=== PATIENT | female | born 1935 | race Caucasian/White ===

== ENCOUNTER 2017-04-17 03:48 | Inpatient (IN) | payer MEDICARE ==
[~2017-04-17] VITALS: Ht 154.9 cm; Wt 55.2 kg
[~2017-04-17 03:48] MED LIST: ALPR0.25 PO; DOCU1CAP39 PO; FURO20TA PO; LEVO.1 PO; LISI-363 PO; MISC-105; MVI PO; POTA-267 PO; PROT40TA PO; SYMB80AE INH; VERA240CR PO; WARF4 PO; Z.0.COMMODE-3:1; Z.0.WALKERFRONT; [UNRECOGNIZED DRUG - CODE]; [UNRECOGNIZED DRUG - CODE]; [UNRECOGNIZED DRUG - OTHER]
[2017-04-17 03:50] VITALS: BP 188/89; PULSE 109; RESP 20; TEMP 98.2; O2SAT 88
[2017-04-17] MEDS ORDERED: LANS30CA PO (03:56)
[2017-04-17] MEDS ORDERED: XANA1TAB2 PO (03:56)
[2017-04-17] MEDS ORDERED: VERA1TAB17 PO (03:56)
[2017-04-17] MEDS ORDERED: FURO20TA PO (03:56)
[2017-04-17] MEDS ORDERED: K-TA10TA PO (03:56)
[2017-04-17] MEDS ORDERED: ASPI-516 CHEW (03:56)
[2017-04-17] MEDS ORDERED: LISI-515 PO (03:56)
[2017-04-17] MEDS ORDERED: RANI150T PO (03:56)
[2017-04-17] MEDS ORDERED: ACETAMINOPHEN 325 MG TAB PO ONE (04:00)
--- NOTE | 2017-04-17 04:01 | PD ---
HPI Chief Complaint: Fall Time Seen by Provider: 03:52 Travel History International Travel<30 days: No Contact w/Intl Traveler<30days: No Traveled to known affect area: No History of Present Illness HPI The patient is a 82-year-old female who presents emergency department for left hip and pelvic pain after falling. The patient states she got out of bed earlier tonight, was walking on a carpeted surface when she lost her balance and fell on her left hip. The patient plays left hip pain that radiates into the left pelvis. The patient was able to ambulate into bed, however, was unable to ambulate after she got into bed. The patient states she difficulty getting to the bathroom and had to call EMS. She was unable to bear weight to the bathroom, but was able to get there with EMS help. She does have a history of previous right hip replacement, denies any previous injuries to the left hip. The pain is worse with movement and weightbearing activity. She denies any head injury, neck injury, chest pain, shortness breath, nausea, vomiting, or abdominal pain. Symptoms are moderate, exacerbated after falling, and slightly alleviated at rest. PFSH Past Medical History Arthritis: No Asthma: No Autoimmune Disease: No Anxiety: Yes Depression: Yes Heart Rhythm Problems: Yes Cancer: No Cardiovascular Problems: Yes (CHF) High Cholesterol: Yes Chemotherapy: No Chest Pain: No Congestive Heart Failure: Yes (Diastolic CHF) COPD: Yes Cerebrovascular Accident: No Diabetes: No Endocrine: Yes Gastrointestinal Disorders: Yes GERD: Yes Glaucoma: Yes (EARLY MAC. DEGEN) Genitourinary: No Headaches: No Hepatitis: No Hiatal Hernia: Yes Heparin Induced Thrombocytopen: No Hypertension: Yes Immune Disorder: No Implanted Vascular Access Dvce: Yes Kidney Stones: No Medical other: Yes (DVT RIGHT LEG, ?PE AT THAT TIME) Musculoskeletal: Yes Neurologic: Yes Psychiatric: Yes Reproductive: No Respiratory: Yes (Pulmonary hypertension) Migraines: No Radiation Therapy: No Renal Failure: No Seizures: No Sickle Cell Disease: No Sleep Apnea: No Thyroid Disease: Yes (Hypothyroidism) Ulcer: No Past Surgical History Abdominal Surgery: No AICD: No Arteriovenous Shunt: No Body Medical Devices: SCREWS RIGHT HIP Cardiac Surgery: No Ear Surgery: No Endocrine Surgery: No Eye Surgery: Yes (Cataract removal) Genitourinary Surgery: Yes (Surgery of the urethra) Gynecologic Surgery: Yes (BTL and oopherectomy) Hysterectomy: Yes Insulin Pump: No Joint Replacement: Yes (Right JESSE) Neurologic Surgery: No Oral Surgery: Yes (Tonsillectomy) Pacemaker: No Thoracic Surgery: No Other Surgery: Yes Social History Alcohol Use: Yes (RARELY) Tobacco Use: Yes (1/2 PPD) Substance Use: No Allergies-Medications (Allergen,Severity, Reaction): Coded Allergies: amoxicillin (Unverified Allergy, Severe, TONGUE SWELLING, 04/17/17) clavulanic acid (Unverified Allergy, Severe, TONGUE SWELLING, 04/17/17) codeine (Unverified Allergy, Severe, NAUSEA, 04/17/17) diatrizoate meglumine (Unverified Allergy, Severe, ITCH, NAUSEA, 04/17/17) gadobenic acid (Unverified Allergy, Severe, ITCH, NAUSEA, 04/17/17) gadodiamide (Unverified Allergy, Severe, ITCH, NAUSEA, 04/17/17) gadoteridol (Unverified Allergy, Severe, ITCH, NAUSEA, 04/17/17) iodixanol (Unverified Allergy, Severe, ITCH, NAUSEA, 04/17/17) iohexol (Unverified Allergy, Severe, ITCH, NAUSEA, 04/17/17) phenobarbital (Unverified Allergy, Severe, RASH, 04/17/17) fentanyl (Unverified Adverse Reaction, Unknown, 04/17/17) FENTANYL PATCH-PT HALLUCINATED, "OUT OF IT", UNCONSIOUS Reported Meds & Prescriptions Reported Meds & Active Scripts Active Reported Xanax (Alprazolam) 1 Mg Tab 1 Mg PO Q8H PRN Ranitidine (Ranitidine HCl) 150 Mg Tab 150 Mg PO DAILY Verapamil ER 24 HR (Verapamil HCl) 240 Mg Tab 240 Mg PO HS Lansoprazole 30 Mg Capdr 30 Mg PO DAILY Furosemide 20 Mg Tab 20 Mg PO DAILY Aspirin 81 Mg Chew 81 Mg CHEW DAILY K-Tab (Potassium Chloride) 10 Meq Tab 10 Meq PO DAILY Lisinopril 20 Mg Tab 20 Mg PO DAILY Review of Systems Except as stated in HPI: all other systems reviewed are Neg General / Constitutional: No: Fever HENT: No: Headaches, Lightheadedness, Neck Pain Cardiovascular: No: Chest Pain or Discomfort Respiratory: No: Shortness of Breath Gastrointestinal: No: Nausea, Vomiting, Abdominal Pain Musculoskeletal: Positive: Limited ROM, Pain Neurologic: No: Dizziness Physical Exam Narrative GENERAL: Awake, alert, pleasant 82 year-old female appears her stated age and is in no acute respiratory distress. SKIN: Focused skin assessment warm/dry. Superficial ecchymosis noted a left upper extremity. HEAD: Atraumatic. Normocephalic. EYES: Pupils equal and round. No scleral icterus. No injection or drainage. ENT: No nasal bleeding or discharge. Mucous membranes pink and moist. NECK: Trachea midline. No JVD. No tenderness of the cervical vertebrae. CARDIOVASCULAR: Regular rate and rhythm. No murmur appreciated. RESPIRATORY: No accessory muscle use. Clear to auscultation. Breath sounds equal bilaterally. GASTROINTESTINAL: Abdomen soft, non-tender, nondistended. No rebound tenderness. Back: No tenderness over the thoracic or lumbar vertebrae. MUSCULOSKELETAL: No obvious leg length discrepancy. Patient has pain over the lateral left hip with flexion of the hip and knee. Mild tenderness upon palpation of the lateral left hip and left inguinal canal. Positive distal pulses. NEUROLOGICAL: Awake and alert. No obvious cranial nerve deficits. Motor grossly within normal limits. Normal speech. Nonfocal. Oriented 4. Follows commands without difficulty. PSYCHIATRIC: Appropriate mood and affect; insight and judgment normal. Data Data Last Documented VS Vital Signs Date Time Temp Pulse Resp B/P (MAP) Pulse Ox O2 Delivery O2 Flow Rate FiO2 04/17/17 04:43 92 Nasal Cannula 2.00 04/17/17 03:50 98.2 109 20 188/89 (122) Orders Orders Hip, Uni(Ap&Lat) W Ap Pelvis (04/17/17 ) Acetaminophen (Tylenol) (04/17/17 04:00) Electrocardiogram (04/17/17 04:39) Complete Blood Count With Diff (04/17/17 04:39) Comprehensive Metabolic Panel (04/17/17 04:39) Prothrombin Time / Inr (Pt) (04/17/17 04:39) Act Partial Throm Time (Ptt) (04/17/17 04:39) Urinalysis - C+S If Indicated (04/17/17 04:39) Type And Screen (04/17/17 04:39) Chest, Single Ap (04/17/17 04:39) Iv Access Insert/Monitor (04/17/17 04:39) Oximetry (04/17/17 04:39) Ecg Monitoring (04/17/17 04:39) Sodium Chloride 0.9% Flush (Ns Flush) (04/17/17 04:45) Urinary Catheter Insert/Apply (04/17/17 04:44) Consult Orthopedic (04/17/17 ) Admit Order (Ed Use Only) (04/17/17 05:27) Labs Laboratory Tests Test 04/17/17 04:45 White Blood Count 14.5 TH/MM3 Red Blood Count 4.49 MIL/MM3 Hemoglobin 12.1 GM/DL Hematocrit 37.0 % Mean Corpuscular Volume 82.5 FL Mean Corpuscular Hemoglobin 27.0 PG Mean Corpuscular Hemoglobin Concent 32.7 % Red Cell Distribution Width 15.1 % Platelet Count 502 TH/MM3 Mean Platelet Volume 6.5 FL Neutrophils (%) (Auto) 86.1 % Lymphocytes (%) (Auto) 6.2 % Monocytes (%) (Auto) 6.1 % Eosinophils (%) (Auto) 0.5 % Basophils (%) (Auto) 1.1 % Neutrophils # (Auto) 12.4 TH/MM3 Lymphocytes # (Auto) 0.9 TH/MM3 Monocytes # (Auto) 0.9 TH/MM3 Eosinophils # (Auto) 0.1 TH/MM3 Basophils # (Auto) 0.2 TH/MM3 CBC Comment DIFF FINAL Differential Comment Prothrombin Time 10.6 SEC Prothromb Time International Ratio 1.0 RATIO Activated Partial Thromboplast Time 29.1 SEC Urine Color YELLOW Urine Turbidity HAZY Urine pH 7.5 Urine Specific [place] 1.015 Urine Protein TRACE mg/dL Urine Glucose (UA) NEG mg/dL Urine Ketones 10 mg/dL Urine Occult Blood TRACE Urine Nitrite NEG Urine Bilirubin NEG Urine Urobilinogen LESS THAN 2.0 MG/DL Urine Leukocyte Esterase NEG Urine RBC 3 /hpf Urine WBC 1 /hpf Urine Bacteria RARE /hpf Urine Mucus FEW /lpf Microscopic Urinalysis Comment CULT NOT INDICATED Blood Urea Nitrogen 8 MG/DL Creatinine 0.59 MG/DL Random Glucose 106 MG/DL Total Protein 6.7 GM/DL Albumin 2.9 GM/DL Calcium Level 8.7 MG/DL Alkaline Phosphatase 92 U/L Aspartate Amino Transf (AST/SGOT) 10 U/L Alanine Aminotransferase (ALT/SGPT) 19 U/L Total Bilirubin 0.4 MG/DL Sodium Level 134 MEQ/L Potassium Level 3.8 MEQ/L Chloride Level 99 MEQ/L Carbon Dioxide Level 27.8 MEQ/L Anion Gap 7 MEQ/L Estimat Glomerular Filtration Rate 97 ML/MIN [facility] Medical Decision Making Medical Screen Exam Complete: Yes Emergency Medical Condition: Yes Medical Record Reviewed: Yes Interpretation(s) EKG reveals sinus tachycardia with a heart rate of 101. Q wave noted in lead 2 , 3, and aVF. Last Impressions Hip and Pelvis X-Ray 04/17/17 0000 Signed Impressions: Service Date/Time: Monday, April 17, 2017 04:18 - CONCLUSION: Subcapital femoral neck fracture. Ismael Romano MD Chest x-ray reveals questionable nodular density seen in the upper lungs bilaterally. This could be further evaluated with a CT examination of the chest. Mildly prominent interstitial markings especially in the upper lungs. Laboratory Tests Test 04/17/17 04:45 White Blood Count 14.5 TH/MM3 Red Blood Count 4.49 MIL/MM3 Hemoglobin 12.1 GM/DL Hematocrit 37.0 % Mean Corpuscular Volume 82.5 FL Mean Corpuscular Hemoglobin 27.0 PG Mean Corpuscular Hemoglobin Concent 32.7 % Red Cell Distribution Width 15.1 % Platelet Count 502 TH/MM3 Mean Platelet Volume 6.5 FL Neutrophils (%) (Auto) 86.1 % Lymphocytes (%) (Auto) 6.2 % Monocytes (%) (Auto) 6.1 % Eosinophils (%) (Auto) 0.5 % Basophils (%) (Auto) 1.1 % Neutrophils # (Auto) 12.4 TH/MM3 Lymphocytes # (Auto) 0.9 TH/MM3 Monocytes # (Auto) 0.9 TH/MM3 Eosinophils # (Auto) 0.1 TH/MM3 Basophils # (Auto) 0.2 TH/MM3 CBC Comment DIFF FINAL Differential Comment Prothrombin Time 10.6 SEC Prothromb Time International Ratio 1.0 RATIO Activated Partial Thromboplast Time 29.1 SEC Urine Color YELLOW Urine Turbidity HAZY Urine pH 7.5 Urine Specific [place] 1.015 Urine Protein TRACE mg/dL Urine Glucose (UA) NEG mg/dL Urine Ketones 10 mg/dL Urine Occult Blood TRACE Urine Nitrite NEG Urine Bilirubin NEG Urine Urobilinogen LESS THAN 2.0 MG/DL Urine Leukocyte Esterase NEG Urine RBC 3 /hpf Urine WBC 1 /hpf Urine Bacteria RARE /hpf Urine Mucus FEW /lpf Microscopic Urinalysis Comment CULT NOT INDICATED Blood Urea Nitrogen 8 MG/DL Creatinine 0.59 MG/DL Random Glucose 106 MG/DL Total Protein 6.7 GM/DL Albumin 2.9 GM/DL Calcium Level 8.7 MG/DL Alkaline Phosphatase 92 U/L Aspartate Amino Transf (AST/SGOT) 10 U/L Alanine Aminotransferase (ALT/SGPT) 19 U/L Total Bilirubin 0.4 MG/DL Sodium Level 134 MEQ/L Potassium Level 3.8 MEQ/L Chloride Level 99 MEQ/L Carbon Dioxide Level 27.8 MEQ/L Anion Gap 7 MEQ/L Estimat Glomerular Filtration Rate 97 ML/MIN Differential Diagnosis Differential diagnosis includes hip fracture, hip dislocation, hip contusion, pelvic fracture, sacral fracture, mechanical fall, hematoma. Narrative Course X-ray of the left hip and pelvis was obtained. The patient declined pain medication with narcotics, however, did state she would take a Tylenol. Therefore, patient was administered Tylenol 650 mg orally for pain. X-ray of the pelvis and left hip reveals a left hip fracture, therefore, chest x-ray was obtained. IV was established, labs are drawn and sent, type and screen was sent to lab. EKG was ordered and interpreted. The patient has for healthcare, therefore, the on-call [facility] physician was paged for admission. The patient states her orthopedic surgeon is Dr. Rosales. I reevaluated the patient, she still had mild discomfort, I offered to administer the patient morphine for her left hip fracture, however, she declined and states that she is allergic to pain medications. She states she is comfortable and does not want any morphine. The patient will be kept nothing by mouth. A Gill catheter was placed for the patient's comfort. Physician Communication Physician Communication The on-call [facility] physician was paged for admission. I discussed the patient with Dr. Vargas who agrees with admission to Dr. Dallas. Diagnosis Primary Impression: Closed left hip fracture Qualified Codes: S72.002A - Fracture of unspecified part of neck of left femur , initial encounter for closed fracture Admitting Information Admitting Physician Requests: Admit Condition: Stable Simon Garcia MD Apr 17, 2017 04:01
[2017-04-17 04:43] VITALS: O2SAT 92
[2017-04-17] MEDS ORDERED: SODIUM CHLORIDE 0.9% FLUSH 10 ML FLUSH IVF PRN (04:45)
--- NOTE | 2017-04-17 04:56 | RADRPT ---
EXAM DATE/TIME: 04/17/2017 04:18 [facility] COMPARISON: No previous studies available for comparison. INDICATIONS : Trauma, fall. MEDICAL HISTORY : None. SURGICAL HISTORY : Left hip replacement. ENCOUNTER: Initial ACUITY: 1 day PAIN SCORE: 5/10 LOCATION: Left hip FINDINGS: There is a compressed fracture at the subcapital portion of the left femoral neck. The femoral head i s normally positioned. There is a right hip prosthesis in place. CONCLUSION: Subcapital femoral neck fracture. Ismael Romano MD on April 17, 2017 at 4:54 Board Certified Radiologist. This report was verified electronically.
[2017-04-17 05:00] LABS: AUTOMATED NEUTROPHIL # 12.4 TH/MM3 (1.8-7.7); BASOPHIL # 0.2 TH/MM3 (0-0.2); BASOPHIL % 1.1 % (0.0-2.0); EOSINOPHIL # 0.1 TH/MM3 (0-0.4); EOSINOPHIL % 0.5 % (0.0-4.0); HEMO FLAGS DIFF FINAL; LYMPH % 6.2 % (9.0-44.0); LYMPHOCYTE # 0.9 TH/MM3 (1.0-4.8); MEAN CELL VOLUME 82.5 FL (80.0-100.0); MEAN CORPUSCULAR HGB CONC 32.7 % (32.0-36.0); MONO % 6.1 % (0.0-8.0); NEUT % 86.1 % (16.0-70.0); PLATELET COUNT 502 TH/MM3 (150-450); RED BLOOD COUNT 4.49 MIL/MM3 (4.00-5.30); RED CELL DISTRIBUTION WIDTH 15.1 % (11.6-17.2); WHITE BLOOD COUNT 14.5 TH/MM3 (4.0-11.0)
--- NOTE | 2017-04-17 05:10 | RADRPT ---
EXAM DATE/TIME: 04/17/2017 04:43 [facility] COMPARISON: No previous studies available for comparison. INDICATIONS : Evaluate for pneumonia, pneumothorax, or communicable disease. Pre op for left hip surgery. MEDICAL HISTORY : Chronic obstructive pulmonary disease. Congestive heart failure. SURGICAL HISTORY : None. ENCOUNTER: Initial ACUITY: 1 day PAIN SCORE: 0/10 LOCATION: Bilateral chest FINDINGS: The heart size is normal. There is interstitial process in the upper lungs bilaterally. There are par tial nodular area seen in the upper lungs. There some minimal increased density at the lateral left b ase. Significant effusions are not seen. The bony structures appear intact. CONCLUSION: 1. Questionable nodular density seen in the upper lungs bilaterally. His could be further evaluated w ith a CT examination of the chest. 2. Mildly prominent interstitial markings especially in the upper lungs. Ismael Romano MD on April 17, 2017 at 5:06 Board Certified Radiologist. This report was verified electronically.
[2017-04-17 05:13] LABS: APTT (PATIENT) 29.1 SEC (24.3-30.1); BACTERIA, URINE RARE /hpf; BLOOD, URINE TRACE (NEG); COMMENT (UR) CULT NOT INDICATED; CULTURE IF INDICATED CULT NOT INDICATED; GLUCOSE,URINE NEG (NEG); KETONE, URINE 10 mg/dL (NEG); MUCUS URINE FEW /lpf (OCC); NITRITE,URINE NEG (NEG); PH, URINE 7.5 (5.0-8.5); PROTHROMBIN TIME - PATIENT 10.6 SEC (9.8-11.6); URINE COLOR YELLOW (YELLW/STRAW)
[2017-04-17 05:16] LABS: ALT (GPT) 19 U/L (10-53); ANION GAP 7 MEQ/L (5-15); AST (GOT) 10 U/L (15-37); BICARBONATE 27.8 MEQ/L (21.0-32.0); BLOOD UREA NITROGEN 8 MG/DL (7-18); CHLORIDE 99 MEQ/L (98-107); GLOMERULAR FILTRATION RATE 97 ML/MIN (>89); POTASSIUM 3.8 MEQ/L (3.5-5.1); SODIUM (NA) 134 MEQ/L (136-145)
[2017-04-17 05:18] LABS: ALKALINE PHOSPHATASE 92 U/L (45-117); TOTAL BILIRUBIN ADULT 0.4 MG/DL (0.2-1.0)
[2017-04-17] MEDS ORDERED: SODIUM CHLOR 0.9% 1000 ML INJ 1,000 ML IV SCH (06:07)
[2017-04-17] MEDS ORDERED: ACETAMINOPHEN 500 MG CPLT PO PRN (06:15)
[2017-04-17] MEDS ORDERED: METOPROLOL TARTRATE 25 MG TAB PO PRN (06:15)
[2017-04-17] MEDS ORDERED: ONDANSETRON HCL 4 MG/2 ML VIAL IV PUSH PRN (06:15)
[2017-04-17] MEDS ORDERED: INSULIN HUMAN REGULAR 1,000 UNITS/10 ML VIAL SQ PRN (06:15)
[2017-04-17] MEDS ORDERED: SODIUM CHLORID 0.9% 500 ML IV PRN (06:15)
[2017-04-17] MEDS ORDERED: MORPHINE SULFATE 4 MG/ML INJ IV PUSH PRN (06:15)
[2017-04-17] MEDS ORDERED: SODIUM CHLORIDE 0.9% FLUSH 10 ML FLUSH IV FLUSH PRN (06:15)
[2017-04-17] MEDS ORDERED: LACTATED RINGER'S 1000 ML IV PRN (06:15)
[2017-04-17] MEDS ORDERED: CHLORHEXIDINE GLUCONATE 2 % 1 PACK (2 CLOTHS) TOPICAL PRN (06:15)
[2017-04-17] MEDS ORDERED: ACETAMINOPHEN/HYDROcodone 325 MG/7.5 MG TAB PO PRN (06:15)
--- NOTE | 2017-04-17 06:55 | HHI.HP ---
HPI Service [facility] Hospitalists Primary Care Physician Theresa Owen Jr, MD Admission Diagnosis left femoral neck fracture Chief Complaint: left hip pain after fall Travel History International Travel<30 Days: No Contact w/Intl Traveler <30 Da: No Traveled to Known Affected Are: No History of Present Illness The patient is a 82-year-old female with COPD and diastolic heart failure who presents emergency department for left hip and pelvic pain after falling. Patient fell at her home around 11 PM last night when walking on her carpeted floor which is been cleaned that day. She reports that she generally walks barefoot but was wearing some shoes as a carpet been cleaned. The rubber sole of the shoe got caught on some carpeted she felt her left hip. The patient was able to ambulate into bed with noted pain, however, was unable to ambulate after she got into bed. The patient states she had difficulty getting to the bathroom and had to call EMS. She was unable to bear weight to the bathroom, but was able to get there with EMS help. She does have a history of previous right hip replacement, denies any previous injuries to the left hip. The pain is worse with movement and weightbearing activity. She denies any head injury, neck injury, chest pain, shortness breath, nausea, vomiting, loss of consciousness, palpitations or abdominal pain. X-ray performed demonstrates left femoral neck fracture. Patient's pain is controlled presently on Tylenol and she is currently declining any opiate type pain medication due to her previous reaction. She is requesting her previous orthopedic surgeon Dr. Rosales. I have communicated with him and he will see patient today. Review of Systems Constitutional: DENIES: Diaphoretic episodes, Fatigue, Fever, Weight gain, Weight loss, Chills, Dizziness, Change in appetite, Night Sweats Ears, nose, mouth, throat: COMPLAINS OF: Hearing loss, DENIES: Tinnitus, Vertigo, Nasal discharge, Oral lesions, Throat pain, Hoarseness, Ear Pain, Running Nose, Epistaxis, Sinus Pain, Toothache, Odynophagia Respiratory: DENIES: Apneas, Cough, Snoring, Wheezing, Hemoptysis, Sputum production Cardiovascular: DENIES: Chest pain, Palpitations, Syncope, Dyspnea on Exertion , PND, Lower Extremity Edema, Orthopnea, Claudication Gastrointestinal: DENIES: Abdominal pain, Black stools, Bloody stools, BRB per rectum, Constipation, Diarrhea, GERD, Nausea, Reflux, Vomiting, Difficulty Swallowing, Anorexia, See HPI Musculoskeletal: COMPLAINS OF: Joint pain, Back pain Hematologic/lymphatic: COMPLAINS OF: Bruising Neurologic: COMPLAINS OF: Abnormal gait Psychiatric: COMPLAINS OF: Anxiety Past Family Social History Past Medical History Anxiety History of avascular necrosis of right femur COPD Diastolic heart failure Hypertension Hyperlipidemia Hypothyroidism Lumbar degenerative disc disease Osteoporosis Pulmonary emphysema Vitamin D deficiency Past Surgical History Bilateral salpingo-oophorectomy Cataract surgery Basal cell carcinoma removal left cheek Right ORIF in June 2013 Paravertebral nerve block Tonsillectomy Urethral cyst removal Reported Medications Xanax (Alprazolam) 1 Mg Tab 1 Mg PO Q8H PRN Ranitidine (Ranitidine HCl) 150 Mg Tab 150 Mg PO DAILY Verapamil ER 24 HR (Verapamil HCl) 240 Mg Tab 240 Mg PO HS Lansoprazole 30 Mg Capdr 30 Mg PO DAILY Furosemide 20 Mg Tab 20 Mg PO DAILY Aspirin 81 Mg Chew 81 Mg CHEW DAILY K-Tab (Potassium Chloride) 10 Meq Tab 10 Meq PO DAILY Lisinopril 20 Mg Tab 20 Mg PO DAILY Allergies: Coded Allergies: amoxicillin (Unverified Allergy, Severe, TONGUE SWELLING, 04/17/17) clavulanic acid (Unverified Allergy, Severe, TONGUE SWELLING, 04/17/17) codeine (Unverified Allergy, Severe, NAUSEA, 04/17/17) diatrizoate meglumine (Unverified Allergy, Severe, ITCH, NAUSEA, 04/17/17) gadobenic acid (Unverified Allergy, Severe, ITCH, NAUSEA, 04/17/17) gadodiamide (Unverified Allergy, Severe, ITCH, NAUSEA, 04/17/17) gadoteridol (Unverified Allergy, Severe, ITCH, NAUSEA, 04/17/17) iodixanol (Unverified Allergy, Severe, ITCH, NAUSEA, 04/17/17) iohexol (Unverified Allergy, Severe, ITCH, NAUSEA, 04/17/17) phenobarbital (Unverified Allergy, Severe, RASH, 04/17/17) fentanyl (Unverified Adverse Reaction, Unknown, 04/17/17) FENTANYL PATCH-PT HALLUCINATED, "OUT OF IT", UNCONSIOUS Family History Noncontributory Social History Lives with her . 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 Alert and oriented. SKIN: Purpuric rash on bilateral forearms. Xerotic. HEAD: Atraumatic. Normocephalic. No temporal or scalp tenderness. EYES: Pupils equal round and reactive. Extraocular motions intact. No scleral icterus. No injection or drainage. ENT: Nose without bleeding, purulent drainage or septal hematoma. Airway patent. NECK: Trachea midline. No JVD or lymphadenopathy. Supple, nontender, no meningeal signs. CARDIOVASCULAR: Regular rate and rhythm without murmurs, gallops, or rubs. RESPIRATORY: Coarse breath sounds bilaterally with good air movement. No wheeze. Crackles. GASTROINTESTINAL: Abdomen soft, non-tender, nondistended. No hepato-splenomegaly , or palpable masses. No guarding. MUSCULOSKELETAL: Extremities without clubbing, cyanosis, or edema. Left lateral hip and medial groin with tenderness to palpation. Patient resisted any rotation of left lower extremity due to the pain. No calf tenderness. NEUROLOGICAL: Awake and alert. Cranial nerves II through XII intact. Motor and sensory grossly within normal limits. Five out of 5 muscle strength in all muscle groups. Normal speech. Laboratory Laboratory Tests Test 04/17/17 04:45 White Blood Count 14.5 Red Blood Count 4.49 Hemoglobin 12.1 Hematocrit 37.0 Mean Corpuscular Volume 82.5 Mean Corpuscular Hemoglobin 27.0 Mean Corpuscular Hemoglobin Concent 32.7 Red Cell Distribution Width 15.1 Platelet Count 502 Mean Platelet Volume 6.5 Neutrophils (%) (Auto) 86.1 Lymphocytes (%) (Auto) 6.2 Monocytes (%) (Auto) 6.1 Eosinophils (%) (Auto) 0.5 Basophils (%) (Auto) 1.1 Neutrophils # (Auto) 12.4 Lymphocytes # (Auto) 0.9 Monocytes # (Auto) 0.9 Eosinophils # (Auto) 0.1 Basophils # (Auto) 0.2 CBC Comment DIFF FINAL Differential Comment Prothrombin Time 10.6 Prothromb Time International Ratio 1.0 Activated Partial Thromboplast Time 29.1 Urine Color YELLOW Urine Turbidity HAZY Urine pH 7.5 Urine Specific [place] 1.015 Urine Protein TRACE Urine Glucose (UA) NEG Urine Ketones 10 Urine Occult Blood TRACE Urine Nitrite NEG Urine Bilirubin NEG Urine Urobilinogen LESS THAN 2.0 Urine Leukocyte Esterase NEG Urine RBC 3 Urine WBC 1 Urine Bacteria RARE Urine Mucus FEW Microscopic Urinalysis Comment CULT NOT INDICATED Blood Urea Nitrogen 8 Creatinine 0.59 Random Glucose 106 Total Protein 6.7 Albumin 2.9 Calcium Level 8.7 Alkaline Phosphatase 92 Aspartate Amino Transf (AST/SGOT) 10 Alanine Aminotransferase (ALT/SGPT) 19 Total Bilirubin 0.4 Sodium Level 134 Potassium Level 3.8 Chloride Level 99 Carbon Dioxide Level 27.8 Anion Gap 7 Estimat Glomerular Filtration Rate 97 Result Diagram: 04/17/17 0445 04/17/17 0445 Imaging Last 72 hours Impressions Chest X-Ray 04/17/17 0439 Signed Impressions: Service Date/Time: Monday, April 17, 2017 04:43 - CONCLUSION: 1. Questionable nodular density seen in the upper lungs bilaterally. His could be further evaluated with a CT examination of the chest. 2. Mildly prominent interstitial markings especially in the upper lungs. Ismael Romano MD Hip and Pelvis X-Ray 04/17/17 0000 Signed Impressions: Service Date/Time: Monday, April 17, 2017 04:18 - CONCLUSION: Subcapital femoral neck fracture. Ismael Romano MD Caprini VTE Risk Assessment Caprini VTE Risk Assessment: Mod/High Risk (score >= 2) Caprini Risk Assessment Model Point Value = 1 Point Value = 2 Point Value = 3 Point Value = 5 Age 41-60 Minor surgery BMI > 25 kg/m2 Swollen legs Varicose veins or History of unexplained or recurrent spontaneous Oral contraceptives or hormone replacement Sepsis (< 1 month) Serious lung disease, including pneumonia (< 1 month) Abnormal pulmonary function Acute myocardial infarction Congestive heart failure (< 1 month) History of inflammatory bowel disease Medical patient at bed rest Age 61-74 Arthroscopic surgery Major open surgery (> 45 min) Laparoscopic surgery (> 45 min) Malignancy Confined to bed (> 72 hours) Immobilizing plaster cast Central venous access Age >= 75 History of VTE Family history of VTE Factor V Leiden Prothrombin [id number] Lupus anticoagulant Anticardiolipin antibodies Elevated serum homocysteine Heparin-induced thrombocytopenia Other congenital or acquired thrombophilia Stroke (< 1 month) Elective arthroplasty Hip, pelvis, or leg fracture Acute spinal cord injury (< 1 month) Prophylaxis Regimen Total Risk Factor Score Risk Level Prophylaxis Regimen 0-1 Low Early ambulation 2 Moderate Order ONE of the following: *Sequential Compression Device (SCD) *Heparin 5000 units SQ BID 3-4 Higher Order ONE of the following medications: *Heparin 5000 units SQ TID *Enoxaparin/Lovenox 40 mg SQ daily (WT < 150 kg, CrCl > 30 mL/min) *Enoxaparin/Lovenox 30 mg SQ daily (WT < 150 kg, CrCl > 10-29 mL/min) *Enoxaparin/Lovenox 30 mg SQ BID (WT < 150 kg, CrCl > 30 mL/min) AND/OR *Sequential Compression Device (SCD) 5 or more Highest Order ONE of the following medications: *Heparin 5000 units SQ TID (Preferred with Epidurals) *Enoxaparin/Lovenox 40 mg SQ daily (WT < 150 kg, CrCl > 30 mL/min) *Enoxaparin/Lovenox 30 mg SQ daily (WT < 150 kg, CrCl > 10-29 mL/min) *Enoxaparin/Lovenox 30 mg SQ BID (WT < 150 kg, CrCl > 30 mL/min) AND *Sequential Compression Device (SCD) Assessment and Plan Problem List: (1) Closed left hip fracture ICD Codes: S72.002A - Fracture of unspecified part of neck of left femur, initial encounter for closed fracture Status: Acute Plan: Dr. Rosales will see the patient later today. Pain is controlled with Tylenol presently but I have reminded her to ask if she needs something stronger. She is hesitant to use any opiate Medications given her problem with fentanyl in the past. Has previous DVT and will need anticoagulation following surgical intervention. (2) Hypothyroidism ICD Codes: E03.9 - Hypothyroidism, unspecified Status: Chronic Plan: Continue medication (3) GERD (gastroesophageal reflux disease) ICD Codes: K21.9 - Gastro-esophageal reflux disease without esophagitis Status: Chronic Plan: Continue PPI (4) Diastolic congestive heart failure ICD Codes: I50.30 - Unspecified diastolic (congestive) heart failure Status: Chronic Plan: EF was 60% on echo done February 2014. No overt failure on exam. (5) COPD (chronic obstructive pulmonary disease) ICD Codes: J44.9 - Chronic obstructive pulmonary disease, unspecified Status: Chronic (6) Hypertension ICD Codes: I10 - Essential (primary) hypertension Status: Chronic Plan: Continue medication Code Status full Discussed Condition With Patient and ER provider Also notified Dr. Rosales Physician Certification 2 Midnight Certification Type: Admission for Inpatient Services Order for Inpatient Services The services are ordered in accordance with Medicare regulations or non- Medicare payer requirements, as applicable. In the case of services not specified as inpatient-only, they are appropriately provided as inpatient services in accordance with the 2-midnight benchmark. Estimated LOS (days): 3 days is the estimated time the patient will need to remain in the hospital, assuming treatment plan goals are met and no additional complications. Post-Hospital Plan: SNF Problem Qualifiers (1) Closed left hip fracture: Qualified Codes: S72.002A - Fracture of unspecified part of neck of left femur , initial encounter for closed fracture (2) Hypertension: Qualified Codes: I10 - Essential (primary) hypertension Christopher Vargas MD PhD Apr 17, 2017 06:54
[2017-04-17] MEDS ORDERED: RESP: ALBUTEROL 2.5 MG/IPRATROPIUM 0.5 MG NEB (PRN) NEB (07:00)
[2017-04-17] MEDS ORDERED: LORazepam 2 MG/ML VIAL IV PUSH PRN (07:00)
[2017-04-17] MEDS: PANTOPRAZOLE SODIUM 40 MG VIAL IV PUSH SCH (07:48)
[2017-04-17 07:50] VITALS: BP 196/91; PULSE 106; RESP 24; O2SAT 93
--- NOTE | 2017-04-17 08:24 | MB ---
cc: Elsie TRAYLOR M.D. DATE OF CONSULTATION: 04/17/2017 REASON FOR CONSULTATION Fracture left hip. HISTORY OF PRESENT ILLNESS A pleasant 82-year-old female, well-known to me for hip problems, seen today after she tripped and fell last night injuring her left hip for which she was brought to [facility] and found to have a impacted left femoral neck fracture and admitted. OTHER PAST HISTORY 1. She has a right total hip arthroplasty. 2. She has a history of COPD. 3. Hypertension. 4. Hyperlipidemia. 5. Avascular necrosis of the right femur for which she had a total hip. 6. Hypothyroidism. 7. Back problems. 8. Osteoporosis. 9. Pulmonary emphysema. 10. Vitamin D deficiency. 11. She has also had bilateral salpingo-oophorectomy. 12. Cataract surgery. 13. Basal cell carcinoma removed from left cheek. 14. Paravertebral nerve block. 15. Tonsillectomy. 16. Urethral cyst removal. MEDICATION Currently takes: 1. Xanax. 2. Ranitidine. 3. Verapamil. 4. Lansoprazole. 5. Lasix. 6. 81 mg aspirin a day. 7. Potassium. 8. Lisinopril. ALLERGIES She is allergic to AMOXICILLIN, CLAVULANIC ACID, CODEINE, DIATRIZOATE, GADOBENIC ACID, GADODIAMIDE, GADOTERIDOL, IODIXANOL, IOHEXOL, PHENOBARBITAL AND FENTANYL. REVIEW OF SYSTEMS Noncontributory. FAMILY HISTORY Noncontributory. PHYSICAL EXAMINATION GENERAL: On exam the patient is lying in bed. VITAL SIGNS: Stable, afebrile. EXTREMITIES: Neurovascularly intact to her toes. The left hip shortened somewhat, externally rotated and tender. IMPRESSION AT THIS TIME Impacted fracture, left femoral neck. PLAN Admission for open reduction, internal fixation left hip fracture later today. MD GABBY Glass/CANDACE /7:47 AM /7:56 AM
[2017-04-17] MEDS: SODIUM CHLORIDE 0.9% FLUSH 10 ML FLUSH IV FLUSH SCH ×2 (09:00→20:44)
--- NOTE | 2017-04-17 09:23 | EKG ---
Date Performed: 04/17/2017 Time Performed: 04:49:30 PTAGE: 82 years EKG: SINUS TACHYCARDIA ABNORMAL RHYTHM ECG Compared to prior electrocardiogram, rate has increas ed . PREVIOUS TRACING : 07/13/2008 11.20 DOCTOR: Cristian Sales Interpretating Date/Time 04/17/2017 09:22:42
[2017-04-17] MEDS: LISINOPRIL 20 MG TAB PO SCH (09:51)
[2017-04-17] MEDS ORDERED: cloNIDine HCL 0.1 MG TAB PO PRN (10:15)
--- NOTE | 2017-04-17 10:15 | HHI.PR ---
Subjective Remarks doing ok. unable to take her verapamil only wants tylenol for pain Objective Vitals heart reg lung cta abd s/nt ext no edema Vital Signs Date Time Temp Pulse Resp B/P (MAP) Pulse Ox O2 Delivery O2 Flow Rate FiO2 04/17/17 07:50 106 24 196/91 (126) 93 Nasal Cannula 2.00 04/17/17 04:43 92 Nasal Cannula 2.00 04/17/17 03:50 98.2 109 20 188/89 (122) 88 Result Diagram: 04/17/17 0445 04/17/17 0445 Imaging Last 72 hours Impressions Chest X-Ray 04/17/17 0439 Signed Impressions: Service Date/Time: Monday, April 17, 2017 04:43 - CONCLUSION: 1. Questionable nodular density seen in the upper lungs bilaterally. His could be further evaluated with a CT examination of the chest. 2. Mildly prominent interstitial markings especially in the upper lungs. Ismael Romano MD Hip and Pelvis X-Ray 04/17/17 0000 Signed Impressions: Service Date/Time: Monday, April 17, 2017 04:18 - CONCLUSION: Subcapital femoral neck fracture. Ismael Romano MD A/P Problem List: (1) Closed left hip fracture ICD Codes: S72.002A - Fracture of unspecified part of neck of left femur, initial encounter for closed fracture Status: Acute Plan: 1. hip fracture. left 2. htn. elevated 3. anxiety 4. diastolic chf. stable 5. copd stable. 6. possible nodular densities in upper lungs seen on cxr. will review her records. plan going to OR today for orif only wants tylenol for pain. narcotics make her nauseated. will try ofirmev prn resume home bp meds. prn control lower ivf to avoid chf plan for dvt prophylaxis IS PT cont anxiolytics prn. will review outpt records for ?lung nodules. will eval further after her hip surgery. (2) Hypothyroidism ICD Codes: E03.9 - Hypothyroidism, unspecified Status: Chronic Plan: Continue medication (3) GERD (gastroesophageal reflux disease) ICD Codes: K21.9 - Gastro-esophageal reflux disease without esophagitis Status: Chronic Plan: Continue PPI (4) Diastolic congestive heart failure ICD Codes: I50.30 - Unspecified diastolic (congestive) heart failure Status: Chronic Plan: EF was 60% on echo done February 2014. No overt failure on exam. (5) COPD (chronic obstructive pulmonary disease) ICD Codes: J44.9 - Chronic obstructive pulmonary disease, unspecified Status: Chronic (6) Hypertension ICD Codes: I10 - Essential (primary) hypertension Status: Chronic Plan: Continue medication Problem Qualifiers (1) Closed left hip fracture: Qualified Codes: S72.002A - Fracture of unspecified part of neck of left femur , initial encounter for closed fracture (2) Hypertension: Qualified Codes: I10 - Essential (primary) hypertension Antoni Dallas MD Apr 17, 2017 10:15
[2017-04-17] MEDS ORDERED: ACETAMINOPHEN 1000 MG/100 ML 100 ML IV ONE (10:45)
[2017-04-17] MEDS: SODIUM CHLOR 0.9% 1000 ML INJ 1,000 ML IV SCH (10:54)
[2017-04-17] MEDS: ALPRAZolam 0.5 MG TAB PO PRN ×2 (11:03→20:39)
[2017-04-17 11:36] VITALS: BP 165/85; PULSE 101; RESP 19; TEMP 95.7; O2SAT 94
[2017-04-17 15:05] VITALS: BP 132/74; PULSE 88; RESP 18; TEMP 95.6; O2SAT 95
[2017-04-17] MEDS: UMECLIDINIUM 62.5 MCG/VILANTEROL 25 MCG INHALER INH SCH (16:15)
[2017-04-17] MEDS ORDERED: CLINDAMYCIN 900 MG PREMIX 50 ML IV ONE (17:00)
[2017-04-17] MEDS: ACETAMINOPHEN 1000 MG/100 ML 100 ML IV PRN (18:02)
[2017-04-17 20:16] VITALS: BP 132/66; PULSE 102; RESP 16; TEMP 97; O2SAT 94
[2017-04-17] MEDS: VERAPAMIL HCL 240 MG SUSTAINED RELEASE TAB PO SCH (20:43)
[2017-04-18 00:17] VITALS: BP 129/67; PULSE 88; RESP 16; TEMP 97.2; O2SAT 98
[2017-04-18] MEDS: SODIUM CHLOR 0.9% 1000 ML INJ 1,000 ML IV SCH ×2 (01:18→15:36)
[2017-04-18 04:25] VITALS: BP 143/79; PULSE 106; RESP 16; TEMP 97.3; O2SAT 96
[2017-04-18] MEDS: ALPRAZolam 0.5 MG TAB PO PRN (04:48)
[2017-04-18] MEDS ORDERED: ONDANSETRON HCL 4 MG/2 ML VIAL IV PRN (07:30)
[2017-04-18] MEDS: PANTOPRAZOLE SODIUM 40 MG VIAL IV PUSH SCH (07:43)
[2017-04-18] MEDS: LISINOPRIL 20 MG TAB PO SCH (08:31)
[2017-04-18] MEDS: SODIUM CHLORIDE 0.9% FLUSH 10 ML FLUSH IV FLUSH SCH ×2 (08:33→21:00)
[2017-04-18] MEDS: UMECLIDINIUM 62.5 MCG/VILANTEROL 25 MCG INHALER INH SCH (08:35)
[2017-04-18 08:36] VITALS: BP 138/69; PULSE 117; TEMP 96.6; O2SAT 92
[2017-04-18] MEDS ORDERED: CLINDAMYCIN PHOS 900 MG/6 ML VIAL ONE (10:28)
[2017-04-18] MEDS ORDERED: GENTAMICIN SULFATE 80 MG/2 ML VIAL ONE (10:29)
[2017-04-18] MEDS ORDERED: ACETAMINOPHEN 1000 MG/100 ML 0 ML IV ONE (10:44)
--- NOTE | 2017-04-18 11:16 | HHI.PR ---
Subjective Remarks no events overnight. Objective Vitals nad heart reg lung cta abd s/nt ext no edema Vital Signs Date Time Temp Pulse Resp B/P (MAP) Pulse Ox O2 Delivery O2 Flow Rate FiO2 04/18/17 08:36 96.6 117 138/69 (92) 92 04/18/17 04:25 97.3 106 16 143/79 (100) 96 04/18/17 00:17 97.2 88 16 129/67 (87) 98 04/17/17 20:16 97.0 102 16 132/66 (88) 94 04/17/17 15:05 95.6 88 18 132/74 (93) 95 04/17/17 11:36 95.7 101 19 165/85 (111) 94 Result Diagram: 04/17/17 0445 04/17/17 0445 Imaging Last 72 hours Impressions Chest X-Ray 04/17/17 0439 Signed Impressions: Service Date/Time: Monday, April 17, 2017 04:43 - CONCLUSION: 1. Questionable nodular density seen in the upper lungs bilaterally. His could be further evaluated with a CT examination of the chest. 2. Mildly prominent interstitial markings especially in the upper lungs. Ismael Romano MD Hip and Pelvis X-Ray 04/17/17 0000 Signed Impressions: Service Date/Time: Monday, April 17, 2017 04:18 - CONCLUSION: Subcapital femoral neck fracture. Ismael Romano MD A/P Problem List: (1) Closed left hip fracture ICD Codes: S72.002A - Fracture of unspecified part of neck of left femur, initial encounter for closed fracture Status: Acute Plan: 1. hip fracture. left 2. htn. elevated 3. anxiety 4. diastolic chf. stable 5. copd stable. 6. possible nodular densities in upper lungs seen on cxr. will review her records. addendum: outpt cxr 02/03...right lung nodularity outpt ct chest 2014, multiple bilateral small nodules..largest 6mm on right lower lobe...that increased from prior. plan going to OR today for orif. only wants tylenol for pain. narcotics make her nauseated. will try ofirmev prn resume home bp meds. prn control gentle ivf to avoid chf plan for dvt prophylaxis IS PT cont anxiolytics prn. will review outpt records for ?lung nodules. will eval further after her hip surgery. (2) Hypothyroidism ICD Codes: E03.9 - Hypothyroidism, unspecified Status: Chronic Plan: Continue medication (3) GERD (gastroesophageal reflux disease) ICD Codes: K21.9 - Gastro-esophageal reflux disease without esophagitis Status: Chronic Plan: Continue PPI (4) Diastolic congestive heart failure ICD Codes: I50.30 - Unspecified diastolic (congestive) heart failure Status: Chronic Plan: EF was 60% on echo done February 2014. No overt failure on exam. (5) COPD (chronic obstructive pulmonary disease) ICD Codes: J44.9 - Chronic obstructive pulmonary disease, unspecified Status: Chronic (6) Hypertension ICD Codes: I10 - Essential (primary) hypertension Status: Chronic Plan: Continue medication Problem Qualifiers (1) Closed left hip fracture: Qualified Codes: S72.002A - Fracture of unspecified part of neck of left femur , initial encounter for closed fracture (2) Hypertension: Qualified Codes: I10 - Essential (primary) hypertension Antoni Dallas MD Apr 18, 2017 11:16
[2017-04-18] MEDS ORDERED: PHENYLEPH/NS 1000 MCG/10 ML SYR IV ONE (12:00)
[2017-04-18] MEDS ORDERED: PROPOFOL 200 MG/20 ML AMP IV ONE (12:00)
[2017-04-18] MEDS ORDERED: LIDOCAINE HCL 1% PF 5 ML SYRINGE OTHER ONE (12:00)
--- NOTE | 2017-04-18 12:52 | MP ---
cc: Elsie ROSALES M.D. DATE OF SURGERY 04/18/2017 DATE OF SURGERY 04/18/2017 PREOPERATIVE DIAGNOSIS Impacted fracture left femoral neck POSTOPERATIVE DIAGNOSIS Impacted fracture left femoral neck SURGERY PERFORMED Open reduction, internal fixation left femoral neck fracture with three 7.38 Synthes cannulated screws. SURGEON Dr. Rosales ROUTE DELIVERY CLERK EMI Mendoza ANESTHESIA Spinal PROCEDURE WAS FOLLOWS The patient was brought to the operating room, placed on the operating table in the supine position. After successful induction of spinal anesthesia, the patient was placed on the fracture table with loose traction on the left leg. AP and lateral views revealed excellent reduction of the femoral neck fracture. A small lateral incision was then made just distal to the lateral side of the greater trochanter for insertion of three guidewires in triangular fashion. The depths of the pin measured followed breaking the proximal cortex and inserting one 85, one 90 and one 95 mm 7.3 Synthes cannulated screw up into the femoral neck under C-arm fluoroscopy control. The screws tightened, pins removed, AP and lateral views revealed excellent reduction of the fracture with three cannulated screws in excellent position with the heads of the screws within the confines of the femoral head in both AP and lateral views. The wound was irrigated copiously with antibiotic solution. Meticulous hemostasis achieved. The subcutaneous tissue approximated using interrupted and running on 2-0 and 3-0 Monocryl sutures, Steri-Strips and sterile dressing. No drain utilized. Estimated blood loss 20 cc. Sponge and suture counts correct. EMI Mendoza was present during the entire procedure to include patient positioning and the procedure. The medical necessity of a nurse practitioner as a nurse first assist was indicated in this case due to the surgical complexity of the case itself. During the surgical case, the central service tech was working the back table and my welder assistant EMI was directly assisting me. MD GABBY Glass/CARLEY /12:30 PM /12:35 PM
[2017-04-18] MEDS ORDERED: DO NOT ADM ANY ANTICOAGULANT DRUGS PRN (12:54)
--- NOTE | 2017-04-18 12:58 | HHI.PR ---
Immediate Post Op Note Procedure Date: Apr 18, 2017 Pre Op Diagnosis: impacted left femoral neck fracture Post Op Diagnosis: impacted left femoral neck fracture Surgeon: Elsie Rosales MD Nursing Unit Coordinator(s): Stephanie MIDDLETON Procedure: Left Hip Open reduction and internal fixation with pinning Specimen(s) removed: none Estimated blood loss: 20cc Anesthesia: Spinal Drains: None IVF Tourniquet time (min at mmHg) none Patient to: PACU Patient Condition: Good Implant/Devices: SEE IMPLANT LOG (if applicable) Date/Time of Procedure: SEE SURGICAL CARE RECORD Stephanie Perkins Apr 18, 2017 12:58
--- NOTE | 2017-04-18 13:53 | RADRPT ---
EXAM DATE/TIME: 04/18/2017 12:14 [facility] COMPARISON: HIP LEFT (AP&LAT 2/3VWS) W AP PELVIS, April 17, 2017, 4:18. INDICATIONS : ORIF left hip. MEDICAL HISTORY : None. SURGICAL HISTORY : Right total hip. ENCOUNTER: Initial ACUITY: 1 day PAIN SCORE: Non-responsive. LOCATION: Left hip FINDINGS: Multiple views of the left hip were obtained and demonstrate 3 surgical lack screws transfixing the s ubcapital hip fracture or fracture fragments are in anatomic alignment. CONCLUSION: Status post open rigid internal fixation.. Ashish Saunders MD on April 18, 2017 at 13:50 Board Certified Radiologist. This report was verified electronically.
[2017-04-18 16:15] VITALS: BP 98/53; PULSE 112; RESP 14; TEMP 97.9; O2SAT 90
[2017-04-18] MEDS ORDERED: CLINDAMYCIN 900 MG PREMIX 50 ML IV ONE (20:00)
[2017-04-18 20:21] VITALS: BP 104/52; PULSE 96; RESP 16; TEMP 97; O2SAT 95
[2017-04-18] MEDS: ACETAMINOPHEN 325 MG TAB PO PRN (20:23)
[2017-04-18] MEDS: VERAPAMIL HCL 240 MG SUSTAINED RELEASE TAB PO SCH (20:31)
[2017-04-19] VITALS (7 sets, daily range): BP systolic 92–134; BP diastolic 52–68; PULSE 86–114; RESP 16–17; TEMP 96–97; O2SAT 92–97
[2017-04-19] MEDS: ALPRAZolam 0.5 MG TAB PO PRN ×3 (03:29→22:47)
[2017-04-19] MEDS: ACETAMINOPHEN 325 MG TAB PO PRN ×4 (03:29→20:04)
[2017-04-19] MEDS: SODIUM CHLOR 0.9% 1000 ML INJ 1,000 ML IV SCH ×2 (05:00→15:14)
[2017-04-19 05:45] LABS: HEMATOCRIT 32.3 % (35.0-46.0); REVIEW FLAG FINAL
[2017-04-19] MEDS: PANTOPRAZOLE SODIUM 40 MG VIAL IV PUSH SCH (06:30)
[2017-04-19] MEDS: UMECLIDINIUM 62.5 MCG/VILANTEROL 25 MCG INHALER INH SCH (08:04)
[2017-04-19] MEDS: SODIUM CHLORIDE 0.9% FLUSH 10 ML FLUSH IV FLUSH SCH (09:00)
--- NOTE | 2017-04-19 10:56 | PD.ORT.PN ---
Subjective Subjective Remarks Pt complaining of some spasms in left thigh. Objective Vitals Vital Signs Date Time Temp Pulse Resp B/P (MAP) Pulse Ox O2 Delivery O2 Flow Rate FiO2 04/19/17 08:00 96.0 107 16 115/57 (76) 94 04/19/17 04:17 96.9 87 16 97/56 (70) 95 04/19/17 00:07 96.6 86 16 92/52 (65) 97 04/18/17 20:21 97.0 96 16 104/52 (69) 95 04/18/17 16:15 97.9 112 14 98/53 (68) 90 04/18/17 15:00 97.8 110 16 96/54 (68) 94 Nasal Cannula 3 04/18/17 14:45 109 16 96/52 (67) 93 Nasal Cannula 3 04/18/17 14:30 111 16 95/54 (68) 92 Nasal Cannula 3 04/18/17 14:15 112 16 97/51 (66) 91 Nasal Cannula 3 04/18/17 14:00 111 16 100/57 (71) 95 Nasal Cannula 4 04/18/17 13:45 112 16 99/51 (67) 93 Nasal Cannula 4 04/18/17 13:30 109 16 104/57 (73) 92 Nasal Cannula 4 04/18/17 13:15 113 16 110/55 (73) 92 Nasal Cannula 4 04/18/17 13:00 114 16 116/55 (75) 97 Simple Mask 6 04/18/17 12:54 97.5 117 35 123/60 (81) 96 Simple Mask 6 I/O 04/18/17 04/18/17 04/18/17 04/19/17 04/19/17 04/19/17 07:00 15:00 23:00 07:00 15:00 23:00 Intake Total 0 ml 1000 ml 240 ml 120 ml Output Total 300 ml 320 ml 250 ml 250 ml Balance -300 ml 680 ml -10 ml -130 ml Intake Oral 0 ml 240 ml 120 ml Other 1000 ml Output Urine Total 300 ml 300 ml 250 ml 250 ml Estimated Blood Loss 20 ml # Bowel Movements 0 0 0 Result Diagram: 04/19/17 0416 04/17/17 0445 Objective Remarks Dressing dry and intact. NV intact to toes. No calf tenderness. In bed at present. Assessment & Plan Ortho Post Op Day #: 1 Problem List: Assessment and Plan PT PWB as tolerated. Rehab center soon. Elsie Rosales MD Apr 19, 2017 10:56
--- NOTE | 2017-04-19 14:07 | HHI.PR ---
Subjective Remarks Pt reports that her pain is currently better controlled. She had pain this morning when they moved her around in bed Pt does not want any narcotics due to previous adverse reactions. She requested her PPI be increased to BID and be given prior to her meals Objective Vitals Vital Signs Date Time Temp Pulse Resp B/P (MAP) Pulse Ox O2 Delivery O2 Flow Rate FiO2 04/19/17 12:00 97.0 114 16 125/60 (81) 92 04/19/17 08:00 96.0 107 16 115/57 (76) 94 04/19/17 04:17 96.9 87 16 97/56 (70) 95 04/19/17 00:07 96.6 86 16 92/52 (65) 97 04/18/17 20:21 97.0 96 16 104/52 (69) 95 04/18/17 16:15 97.9 112 14 98/53 (68) 90 04/18/17 15:00 97.8 110 16 96/54 (68) 94 Nasal Cannula 3 04/18/17 14:45 109 16 96/52 (67) 93 Nasal Cannula 3 04/18/17 14:30 111 16 95/54 (68) 92 Nasal Cannula 3 04/18/17 14:15 112 16 97/51 (66) 91 Nasal Cannula 3 04/18/17 14:00 111 16 100/57 (71) 95 Nasal Cannula 4 Result Diagram: 04/19/17 0416 04/17/17 0445 Other Results Laboratory Tests Test 04/19/17 04:16 Hemoglobin 10.3 GM/DL Hematocrit 32.3 % Imaging Last 72 hours Impressions Chest X-Ray 04/17/17 0439 Signed Impressions: Service Date/Time: Monday, April 17, 2017 04:43 - CONCLUSION: 1. Questionable nodular density seen in the upper lungs bilaterally. His could be further evaluated with a CT examination of the chest. 2. Mildly prominent interstitial markings especially in the upper lungs. Ismael Romano MD Hip and Pelvis X-Ray 04/17/17 0000 Signed Impressions: Service Date/Time: Monday, April 17, 2017 04:18 - CONCLUSION: Subcapital femoral neck fracture. Ismael Romano MD Objective Remarks General: NAD, AAOx3 Chest: CTA Cardiac: Regular Abd: +BS, soft ND/NT Ext: Left hip bandages are c/d/i A/P Problem List: (1) Closed left hip fracture ICD Codes: S72.002A - Fracture of unspecified part of neck of left femur, initial encounter for closed fracture Status: Acute Plan: Hip fracture, left - Pt s/p left hip ORIF on 04/18/[address] Rosales - Post op pain control with Tylenol PO and IV PRN. Pt does not want any narcotics - IS - PT - Anticipate d/c to SNF in 1-2 days - DVT prophylaxis with Lovenox HTN - BP actually low post-operatively - Lisinopril stopped - Verapamil on hold - Will resume meds as BP allows Anxiety - Cont. Anxiolytics PRN Diastolic CHF, stable - EF was 60% on echo done February 2014. No overt failure on exam. GERD - Protonix 40mg po BID, give 30 mins prior to morning and evening meals Hypothyroidism - Cont. Home meds COPD, stable. Possible nodular densities in upper lungs seen on cxr. - Review of outpt records noted: outpt cxr 02/03, right lung nodularity. Outpt ct chest 2014, multiple bilateral small nodules, largest 6mm on right lower lobe...that increased from prior. (2) Hypothyroidism ICD Codes: E03.9 - Hypothyroidism, unspecified Status: Chronic Plan: - See above (3) GERD (gastroesophageal reflux disease) ICD Codes: K21.9 - Gastro-esophageal reflux disease without esophagitis Status: Chronic Plan: - See above (4) Diastolic congestive heart failure ICD Codes: I50.30 - Unspecified diastolic (congestive) heart failure Status: Chronic Plan: - See above (5) COPD (chronic obstructive pulmonary disease) ICD Codes: J44.9 - Chronic obstructive pulmonary disease, unspecified Status: Chronic Plan: - See above (6) Hypertension ICD Codes: I10 - Essential (primary) hypertension Status: Chronic Plan: - See above Assessment and Plan Patient examined. Assessment and plan formulated with Sofia Corley PA-C. I agree with the above. s/p left ORIF. BP low. hold bp meds until trends back up initiate dvt prophylaxis PT. plan for snf in 1-2 days. Problem Qualifiers (1) Closed left hip fracture: Qualified Codes: S72.002A - Fracture of unspecified part of neck of left femur , initial encounter for closed fracture (2) Hypertension: Qualified Codes: I10 - Essential (primary) hypertension Sofia Corley Apr 19, 2017 14:07 Antoni Dallas MD Apr 19, 2017 14:29
[2017-04-19] MEDS: PANTOPRAZOLE SOD 40 MG DELAYED RELEASE TAB PO SCH (15:13)
[2017-04-19] MEDS: ENOXAPARIN SODIUM 30 MG/0.3 ML SYRINGE SQ SCH (15:14)
[2017-04-20] VITALS: BP 126/62; PULSE 96; RESP 16; TEMP 96.5; O2SAT 95
[2017-04-20] MEDS: ACETAMINOPHEN 1000 MG/100 ML 100 ML IV PRN (01:15)
[2017-04-20 03:35] VITALS: BP 120/72; PULSE 95; RESP 18; TEMP 97.7; O2SAT 94
[2017-04-20 06:22] LABS: AUTOMATED NEUTROPHIL # 8.1 TH/MM3 (1.8-7.7); BASOPHIL # 0.1 TH/MM3 (0-0.2); BASOPHIL % 0.9 % (0.0-2.0); EOSINOPHIL # 0.8 TH/MM3 (0-0.4); EOSINOPHIL % 7.7 % (0.0-4.0); HEMATOCRIT 31.6 % (35.0-46.0); HEMO FLAGS DIFF FINAL; LYMPH % 9.3 % (9.0-44.0); MEAN CELL VOLUME 85.2 FL (80.0-100.0); MEAN CORPUSCULAR HEMOGLOBIN 26.6 PG (27.0-34.0); MEAN CORPUSCULAR HGB CONC 31.2 % (32.0-36.0); NEUT % 74.1 % (16.0-70.0); PLATELET COUNT 316 TH/MM3 (150-450); RED BLOOD COUNT 3.71 MIL/MM3 (4.00-5.30); RED CELL DISTRIBUTION WIDTH 15.2 % (11.6-17.2); WHITE BLOOD COUNT 10.9 TH/MM3 (4.0-11.0)
[2017-04-20 06:41] LABS: BICARBONATE 26.4 MEQ/L (21.0-32.0); MAGNESIUM 1.7 MG/DL (1.5-2.5); POTASSIUM 3.4 MEQ/L (3.5-5.1)
[2017-04-20] MEDS: ACETAMINOPHEN 325 MG TAB PO PRN ×4 (06:41→23:48)
[2017-04-20 08:00] VITALS: BP 154/80; PULSE 83; RESP 16; TEMP 96.4; O2SAT 99
[2017-04-20] MEDS: PANTOPRAZOLE SOD 40 MG DELAYED RELEASE TAB PO SCH ×2 (08:23→17:41)
[2017-04-20] MEDS: UMECLIDINIUM 62.5 MCG/VILANTEROL 25 MCG INHALER INH SCH (08:23)
[2017-04-20] MEDS: SODIUM CHLORIDE 0.9% FLUSH 10 ML FLUSH IV FLUSH SCH ×2 (09:00→20:18)
[2017-04-20 09:05] VITALS: O2SAT 94
[2017-04-20] MEDS: SODIUM CHLOR 0.9% 1000 ML INJ 1,000 ML IV SCH ×2 (10:30→20:17)
--- NOTE | 2017-04-20 11:14 | PD.ORT.PN ---
Subjective Subjective Remarks Pt complaining of some spasms in left thigh. Objective Vitals Vital Signs Date Time Temp Pulse Resp B/P (MAP) Pulse Ox O2 Delivery O2 Flow Rate FiO2 04/20/17 09:05 94 Nasal Cannula 3.00 04/20/17 08:00 96.4 83 16 154/80 (104) 99 04/20/17 03:35 97.7 95 18 120/72 (88) 94 04/20/17 00:00 96.5 96 16 126/62 (83) 95 04/19/17 20:18 93 Nasal Cannula 3.00 04/19/17 20:00 96.9 100 17 134/68 (90) 93 04/19/17 16:00 96.4 103 16 128/66 (86) 94 04/19/17 12:00 97.0 114 16 125/60 (81) 92 I/O 04/19/17 04/19/17 04/19/17 04/20/17 04/20/17 04/20/17 07:00 15:00 23:00 07:00 15:00 23:00 Intake Total 120 ml 1380 ml 240 ml Output Total 250 ml 300 ml Balance -130 ml 1080 ml 240 ml Intake Oral 120 ml 480 ml 240 ml IV Total 900 ml Output Urine Total 250 ml 300 ml # Bowel Movements 0 Result Diagram: 04/20/17 0544 04/20/1744 Objective Remarks Dressing dry and intact. NV intact to toes. No calf tenderness. In bed at present. Assessment & Plan Ortho Post Op Day #: 2 Problem List: Assessment and Plan PT PWB as tolerated. SNF center when accepted and cleared by medical. Elsie Rosales MD Apr 20, 2017 11:14
[2017-04-20] MEDS ORDERED: BISACODYL EC 5 MG TABEC PO PRN (11:45)
[2017-04-20 12:00] VITALS: BP 159/75; PULSE 103; RESP 21; TEMP 95.5; O2SAT 94
--- NOTE | 2017-04-20 12:27 | HHI.PR ---
Subjective Remarks Pt retaining urine after Gill removed early this morning. She had bladder scan with over 500cc of urine present Pt has not had a BM since admission Afebrile Not ambulating yet Objective Vitals Vital Signs Date Time Temp Pulse Resp B/P (MAP) Pulse Ox O2 Delivery O2 Flow Rate FiO2 04/20/17 09:05 94 Nasal Cannula 3.00 04/20/17 08:00 96.4 83 16 154/80 (104) 99 04/20/17 03:35 97.7 95 18 120/72 (88) 94 04/20/17 00:00 96.5 96 16 126/62 (83) 95 04/19/17 20:18 93 Nasal Cannula 3.00 04/19/17 20:00 96.9 100 17 134/68 (90) 93 04/19/17 16:00 96.4 103 16 128/66 (86) 94 Result Diagram: 04/20/17 0544 04/20/17 0544 Other Results Laboratory Tests Test 04/19/17 04:16 04/20/17 05:44 Hemoglobin 10.3 GM/DL 9.9 GM/DL Hematocrit 32.3 % 31.6 % White Blood Count 10.9 TH/MM3 Red Blood Count 3.71 MIL/MM3 Mean Corpuscular Volume 85.2 FL Mean Corpuscular Hemoglobin 26.6 PG Mean Corpuscular Hemoglobin Concent 31.2 % Red Cell Distribution Width 15.2 % Platelet Count 316 TH/MM3 Mean Platelet Volume 6.8 FL Neutrophils (%) (Auto) 74.1 % Lymphocytes (%) (Auto) 9.3 % Monocytes (%) (Auto) 8.0 % Eosinophils (%) (Auto) 7.7 % Basophils (%) (Auto) 0.9 % Neutrophils # (Auto) 8.1 TH/MM3 Lymphocytes # (Auto) 1.0 TH/MM3 Monocytes # (Auto) 0.9 TH/MM3 Eosinophils # (Auto) 0.8 TH/MM3 Basophils # (Auto) 0.1 TH/MM3 CBC Comment DIFF FINAL Differential Comment Blood Urea Nitrogen 6 MG/DL Creatinine 0.32 MG/DL Random Glucose 121 MG/DL Calcium Level 7.7 MG/DL Magnesium Level 1.7 MG/DL Sodium Level 141 MEQ/L Potassium Level 3.4 MEQ/L Chloride Level 110 MEQ/L Carbon Dioxide Level 26.4 MEQ/L Anion Gap 5 MEQ/L Estimat Glomerular Filtration Rate 197 ML/MIN Imaging Last 72 hours Impressions Chest X-Ray 04/17/17 0439 Signed Impressions: Service Date/Time: Monday, April 17, 2017 04:43 - CONCLUSION: 1. Questionable nodular density seen in the upper lungs bilaterally. His could be further evaluated with a CT examination of the chest. 2. Mildly prominent interstitial markings especially in the upper lungs. Ismael Romano MD Hip and Pelvis X-Ray 04/17/17 0000 Signed Impressions: Service Date/Time: Monday, April 17, 2017 04:18 - CONCLUSION: Subcapital femoral neck fracture. Ismael Romano MD Objective Remarks General: NAD, AAOx3 Chest: CTA Cardiac: Regular Abd: +BS, soft ND/NT Ext: Left hip bandages are c/d/i A/P Problem List: (1) Closed left hip fracture ICD Codes: S72.002A - Fracture of unspecified part of neck of left femur, initial encounter for closed fracture Status: Acute Plan: Hip fracture, left - Pt s/p left hip ORIF on 04/18/[address] Rosales - Post op pain control with Tylenol PO and IV PRN. Pt does not want any narcotics due to SE of nausea - IS - PT - Anticipate d/c to SNF in 1-2 days - Constipation precautions, meds added today - DVT prophylaxis with Lovenox HTN - BP actually low post-operatively - Lisinopril stopped - Verapamil on hold - BP starting to elevate back up - Will resume Lisinopril Anxiety - Cont. Anxiolytics PRN Diastolic CHF, stable - EF was 60% on echo done February 2014. No overt failure on exam. GERD - Protonix 40mg po BID, give 30 mins prior to morning and evening meals Hypothyroidism - Cont. Home meds COPD, stable. Possible nodular densities in upper lungs seen on cxr. - Review of outpt records noted: outpt cxr 02/03, right lung nodularity. Outpt ct chest 2014, multiple bilateral small nodules, largest 6mm on right lower lobe...that increased from prior. - CT Thorax today (2) Hypothyroidism ICD Codes: E03.9 - Hypothyroidism, unspecified Status: Chronic Plan: - See above (3) GERD (gastroesophageal reflux disease) ICD Codes: K21.9 - Gastro-esophageal reflux disease without esophagitis Status: Chronic Plan: - See above (4) Diastolic congestive heart failure ICD Codes: I50.30 - Unspecified diastolic (congestive) heart failure Status: Chronic Plan: - See above (5) COPD (chronic obstructive pulmonary disease) ICD Codes: J44.9 - Chronic obstructive pulmonary disease, unspecified Status: Chronic Plan: - See above (6) Hypertension ICD Codes: I10 - Essential (primary) hypertension Status: Chronic Plan: - See above Assessment and Plan Patient examined. Assessment and plan formulated with Sofia Corley PA-C. I agree with the above. Problem Qualifiers (1) Closed left hip fracture: Qualified Codes: S72.002A - Fracture of unspecified part of neck of left femur , initial encounter for closed fracture (2) Hypertension: Qualified Codes: I10 - Essential (primary) hypertension Sofia Corley Apr 20, 2017 12:27 Tobi Salcedo DO Apr 24, 2017 23:24
[2017-04-20] MEDS: DOCUSATE SODIUM 100 MG CAP PO SCH ×2 (12:35→20:18)
[2017-04-20] MEDS: MAGNESIUM HYDROXIDE SUSP 30 ML CUP PO PRN ×2 (12:35→17:42)
[2017-04-20] MEDS: ENOXAPARIN SODIUM 30 MG/0.3 ML SYRINGE SQ SCH (13:33)
[2017-04-20] MEDS: LISINOPRIL 20 MG TAB PO SCH (13:37)
[2017-04-20] MEDS ORDERED: POTASSIUM CHLORIDE 20 MEQ CONTROLLED RELEASE TAB PO ONE (14:00)
[2017-04-20 19:45] VITALS: BP 146/75; PULSE 97; RESP 17; TEMP 96.8; O2SAT 95
[2017-04-20] MEDS: ALPRAZolam 0.5 MG TAB PO PRN (22:04)
[2017-04-21] VITALS (7 sets, daily range): BP systolic 139–168; BP diastolic 69–96; PULSE 92–115; RESP 17–19; TEMP 95.9–98.1; O2SAT 89–95
[2017-04-21] MEDS: ACETAMINOPHEN 325 MG TAB PO PRN ×3 (05:30→21:12)
[2017-04-21 08:17] LABS: BICARBONATE 30.8 MEQ/L (21.0-32.0); POTASSIUM 3.8 MEQ/L (3.5-5.1)
[2017-04-21] MEDS: LISINOPRIL 20 MG TAB PO SCH (08:54)
[2017-04-21] MEDS: DOCUSATE SODIUM 100 MG CAP PO SCH ×2 (08:55→21:00)
[2017-04-21] MEDS: PANTOPRAZOLE SOD 40 MG DELAYED RELEASE TAB PO SCH ×2 (08:55→17:24)
[2017-04-21] MEDS: SODIUM CHLORIDE 0.9% FLUSH 10 ML FLUSH IV FLUSH SCH ×2 (08:55→21:00)
[2017-04-21] MEDS: UMECLIDINIUM 62.5 MCG/VILANTEROL 25 MCG INHALER INH SCH (08:56)
--- NOTE | 2017-04-21 10:49 | RADRPT ---
EXAM DATE/TIME: 04/21/2017 10:24 [facility] COMPARISON: CHEST SINGLE AP, April 17, 2017, 4:43. INDICATIONS : Short of breath. MEDICAL HISTORY : Chronic obstructive pulmonary disease. SURGICAL HISTORY : Total knee replacement, right. ENCOUNTER: Initial ACUITY: 1 day PAIN SCORE: 0/10 LOCATION: Bilateral chest FINDINGS: A single view of the chest demonstrates reticular nodular interstitial densities greater in upper lob es. Heart mildly enlarged. The cardiomediastinal contours are unremarkable. Osseous structures are i ntact. CONCLUSION: Reticulonodular interstitial densities greater in the upper lobes could be acute or chronic. Zeke Lee MD on April 21, 2017 at 10:46 Board Certified Radiologist. This report was verified electronically.
--- NOTE | 2017-04-21 14:09 | HHI.PR ---
Subjective Remarks Pt has moved her bowels Still on 2-3L of supplemental O2 No new complaints Objective Vitals Vital Signs Date Time Temp Pulse Resp B/P (MAP) Pulse Ox O2 Delivery O2 Flow Rate FiO2 04/21/17 12:00 95.9 115 19 139/69 (92) 94 04/21/17 08:00 98.1 92 19 168/79 (108) 94 04/21/17 04:05 97.1 94 18 155/81 (105) 95 04/21/17 00:10 97.1 99 18 152/84 (106) 93 04/20/17 19:45 96.8 97 17 146/75 (98) 95 04/21/17 04/21/17 04/22/17 15:00 23:00 07:00 # Bowel Movements 1 Result Diagram: 04/20/17 0544 04/21/17 0735 Other Results Laboratory Tests Test 04/20/17 05:44 04/21/17 07:35 White Blood Count 10.9 TH/MM3 Red Blood Count 3.71 MIL/MM3 Hemoglobin 9.9 GM/DL Hematocrit 31.6 % Mean Corpuscular Volume 85.2 FL Mean Corpuscular Hemoglobin 26.6 PG Mean Corpuscular Hemoglobin Concent 31.2 % Red Cell Distribution Width 15.2 % Platelet Count 316 TH/MM3 Mean Platelet Volume 6.8 FL Neutrophils (%) (Auto) 74.1 % Lymphocytes (%) (Auto) 9.3 % Monocytes (%) (Auto) 8.0 % Eosinophils (%) (Auto) 7.7 % Basophils (%) (Auto) 0.9 % Neutrophils # (Auto) 8.1 TH/MM3 Lymphocytes # (Auto) 1.0 TH/MM3 Monocytes # (Auto) 0.9 TH/MM3 Eosinophils # (Auto) 0.8 TH/MM3 Basophils # (Auto) 0.1 TH/MM3 CBC Comment DIFF FINAL Differential Comment Blood Urea Nitrogen 6 MG/DL 9 MG/DL Creatinine 0.32 MG/DL 0.29 MG/DL Random Glucose 121 MG/DL 84 MG/DL Calcium Level 7.7 MG/DL 7.9 MG/DL Magnesium Level 1.7 MG/DL Sodium Level 141 MEQ/L 141 MEQ/L Potassium Level 3.4 MEQ/L 3.8 MEQ/L Chloride Level 110 MEQ/L 105 MEQ/L Carbon Dioxide Level 26.4 MEQ/L 30.8 MEQ/L Anion Gap 5 MEQ/L 5 MEQ/L Estimat Glomerular Filtration Rate 197 ML/MIN 221 ML/MIN Imaging Last 72 hours Impressions Chest X-Ray 04/17/17 0439 Signed Impressions: Service Date/Time: Monday, April 17, 2017 04:43 - CONCLUSION: 1. Questionable nodular density seen in the upper lungs bilaterally. His could be further evaluated with a CT examination of the chest. 2. Mildly prominent interstitial markings especially in the upper lungs. Ismael Romano MD Hip and Pelvis X-Ray 04/17/17 0000 Signed Impressions: Service Date/Time: Monday, April 17, 2017 04:18 - CONCLUSION: Subcapital femoral neck fracture. Ismael Romano MD Objective Remarks General: NAD, AAOx3 Chest: CTA Cardiac: Regular Abd: +BS, soft ND/NT Ext: Left hip bandages are c/d/i A/P Problem List: (1) Closed left hip fracture ICD Codes: S72.002A - Fracture of unspecified part of neck of left femur, initial encounter for closed fracture Status: Acute Plan: Hip fracture, left - Pt s/p left hip ORIF on 04/18/[address] Rosales - Post op pain control with Tylenol PO and IV PRN. Pt does not want any narcotics due to SE of nausea - IS - PT - Anticipate d/c to SNF in 1-2 days - Constipation precautions, meds added - DVT prophylaxis with Lovenox - Pt is planned for discharge to [place], possibly tomorrow if pt is more stable. - She had to have her Gill cath reinserted after removal due to retention. This will be continued at rehab and voiding trial can be attempted at rehab HTN - BP actually low post-operatively - BP started to elevate back up on 04/20 - Lisinopril 20mg po daily resumed on 04/20 - BP still elevated during the night on 04/21, will resume her Verapamil 240mg HS - Monitor Anxiety - Cont. Anxiolytics PRN Diastolic CHF, stable - EF was 60% on echo done February 2014. No overt failure on exam. GERD - Protonix 40mg po BID, give 30 mins prior to morning and evening meals Hypothyroidism - Cont. Home meds COPD, stable. - Pt typically uses supplemental O2 as needed at home but pts daughter reports that the pt will typically not uses the O2 unless she is forced to and typically walks around with an O2 sat in the mid to high 80's - Pt currently on 2-3L of supplemental O2 - No wheezing Possible nodular densities in upper lungs seen on cxr. - Review of outpt records noted: outpt cxr 02/03, right lung nodularity. Outpt ct chest 2014, multiple bilateral small nodules, largest 6mm on right lower lobe...that increased from prior. - Pt and family decline CT Thorax on 04/20 - Repeat CXR (04/21) --> Reticulonodular interstitial densities greater in the upper lobes could be acute or chronic (2) Hypothyroidism ICD Codes: E03.9 - Hypothyroidism, unspecified Status: Chronic Plan: - See above (3) GERD (gastroesophageal reflux disease) ICD Codes: K21.9 - Gastro-esophageal reflux disease without esophagitis Status: Chronic Plan: - See above (4) Diastolic congestive heart failure ICD Codes: I50.30 - Unspecified diastolic (congestive) heart failure Status: Chronic Plan: - See above (5) COPD (chronic obstructive pulmonary disease) ICD Codes: J44.9 - Chronic obstructive pulmonary disease, unspecified Status: Chronic Plan: - See above (6) Hypertension ICD Codes: I10 - Essential (primary) hypertension Status: Chronic Plan: - See above Assessment and Plan Patient examined. Assessment and plan formulated with Sofia Corley PA-C. I agree with the above. Problem Qualifiers (1) Closed left hip fracture: Qualified Codes: S72.002A - Fracture of unspecified part of neck of left femur , initial encounter for closed fracture (2) Hypertension: Qualified Codes: I10 - Essential (primary) hypertension Sofia Corley Apr 21, 2017 14:09 Tobi Salcedo DO Apr 24, 2017 23:25
--- NOTE | 2017-04-21 14:56 | PD.ORT.PN ---
Subjective Subjective Remarks Resting in bed; daughter at bedside feeling better Objective Vitals Vital Signs Date Time Temp Pulse Resp B/P (MAP) Pulse Ox O2 Delivery O2 Flow Rate FiO2 04/21/17 12:00 95.9 115 19 139/69 (92) 94 04/21/17 08:00 98.1 92 19 168/79 (108) 94 04/21/17 04:05 97.1 94 18 155/81 (105) 95 04/21/17 00:10 97.1 99 18 152/84 (106) 93 04/20/17 19:45 96.8 97 17 146/75 (98) 95 I/O 04/20/17 04/20/17 04/20/17 04/21/17 04/21/17 04/21/17 07:00 15:00 23:00 07:00 15:00 23:00 Intake Total 240 ml 1135 ml 240 ml Output Total 650 ml 275 ml 150 ml Balance 240 ml -650 ml 860 ml 90 ml Intake Oral 240 ml 240 ml 240 ml IV Total 895 ml Output Urine Total 650 ml 275 ml 150 ml Bladder Scan Volume Amount 530 ml # Bowel Movements 1 1 1 Result Diagram: 04/20/17 0544 04/21/17 0735 Imaging Last 24 hours Impressions Chest X-Ray 04/21/17 0000 Signed Impressions: Service Date/Time: Friday, April 21, 2017 10:24 - CONCLUSION: Reticulonodular interstitial densities greater in the upper lobes could be acute or chronic. Zeke Lee MD Objective Remarks General: NAD, AAOx3 Chest: CTA Cardiac: Regular Abd: +BS, soft ND/NT Ext: Left hip dressing dry and intact. NV intact to toes. No calf tenderness. In bed at present. Assessment & Plan Assessment and Plan PT PWB as tolerated. Medical following and will resume her Verapamil 240mg HS today and monitor Going to [facility] probably tomorrow Stephanie Perkins Apr 21, 2017 14:56
[2017-04-21] MEDS: ENOXAPARIN SODIUM 30 MG/0.3 ML SYRINGE SQ SCH (15:26)
[2017-04-21] MEDS: VERAPAMIL HCL 240 MG SUSTAINED RELEASE TAB PO SCH (21:11)
[2017-04-21] MEDS: ALPRAZolam 0.5 MG TAB PO PRN (23:05)
[2017-04-22] VITALS (10 sets, daily range): BP systolic 110–151; BP diastolic 59–80; PULSE 76–104; RESP 16–36; TEMP 96.1–98.7; O2SAT 74–98
--- NOTE | 2017-04-22 07:43 | PD.ORT.PN ---
Subjective Post Op Day #: 5 Pain Scale: 2 Subjective Remarks hard to do PWB Objective Vitals Vital Signs Date Time Temp Pulse Resp B/P (MAP) Pulse Ox O2 Delivery O2 Flow Rate FiO2 04/22/17 04:00 96.5 76 17 130/66 (87) 96 04/22/17 00:36 98.7 104 16 148/80 (102) 97 04/21/17 22:12 18 04/21/17 20:19 89 Nasal Cannula 3.00 04/21/17 19:00 96.0 102 17 165/96 (119) 92 04/21/17 16:00 96.3 108 19 153/84 (107) 93 04/21/17 12:00 95.9 115 19 139/69 (92) 94 04/21/17 08:00 98.1 92 19 168/79 (108) 94 I/O 04/21/17 04/21/17 04/21/17 04/22/17 04/22/17 04/22/17 07:00 15:00 23:00 07:00 15:00 23:00 Intake Total 240 ml 1231 ml 260 ml 260 ml Output Total 150 ml 550 ml 400 ml 300 ml Balance 90 ml 681 ml -140 ml -40 ml Intake Oral 240 ml 720 ml 260 ml 260 ml IV Total 511 ml Output Urine Total 150 ml 550 ml 400 ml 300 ml # Bowel Movements 1 3 2 1 Result Diagram: 04/20/17 0544 04/21/17 0735 Imaging Last 24 hours Impressions Chest X-Ray 04/21/17 0000 Signed Impressions: Service Date/Time: Friday, April 21, 2017 10:24 - CONCLUSION: Reticulonodular interstitial densities greater in the upper lobes could be acute or chronic. Zeke Lee MD Objective Remarks General: NAD, AAOx3 Left hip dressing dry and intact Assessment & Plan Ortho Post Op Day #: 5 Problem List: Assessment and Plan PT PWB as tolerated. Medical following and will resume her Verapamil 240mg HS today and monitor does not qualify for [facility] Milad Blood MD Apr 22, 2017 07:43
[2017-04-22] MEDS: LISINOPRIL 20 MG TAB PO SCH (07:47)
[2017-04-22] MEDS: ACETAMINOPHEN 325 MG TAB PO PRN (07:48)
[2017-04-22] MEDS: DOCUSATE SODIUM 100 MG CAP PO SCH ×2 (07:49→21:05)
[2017-04-22] MEDS: UMECLIDINIUM 62.5 MCG/VILANTEROL 25 MCG INHALER INH SCH (07:50)
[2017-04-22] MEDS: SODIUM CHLORIDE 0.9% FLUSH 10 ML FLUSH IV FLUSH SCH ×2 (07:51→21:05)
[2017-04-22] MEDS: PANTOPRAZOLE SOD 40 MG DELAYED RELEASE TAB PO SCH ×2 (07:54→17:48)
[2017-04-22] MEDS: ALPRAZolam 0.5 MG TAB PO PRN (08:37)
--- NOTE | 2017-04-22 11:43 | RADRPT ---
EXAM DATE/TIME: 04/22/2017 11:17 [facility] COMPARISON: CHEST SINGLE AP, April 17, 2017, 4:43. CHEST SINGLE AP, April 21, 2017, 10:24. INDICATIONS : Short of breath. MEDICAL HISTORY : Chronic obstructive pulmonary disease. SURGICAL HISTORY : recent hip surgery. ENCOUNTER: Initial ACUITY: 4 - 6 days PAIN SCORE: 0/10 LOCATION: Bilateral chest FINDINGS: Portable AP view of the chest demonstrates a normal-sized cardiac silhouette with calcification of th e aorta. There are is new small bibasilar pleural-parenchymal opacities. Mild biapical scarring quest ionable air space opacities remain present in the upper lobes. No pneumothorax is present. Bones and soft tissues demonstrate no acute finding. CONCLUSION: 1. New small bibasilar opacities likely representing a very small pleural effusions with associated a telectasis and/or consolidation. 2. Stable appearance to the upper lung zones bilaterally. Ismael Olsen MD on April 22, 2017 at 11:39 Board Certified Radiologist. This report was verified electronically.
--- NOTE | 2017-04-22 12:37 | HHI.PR ---
Subjective Remarks Pt had an episode increased SOB and her O2 sats decreased to the 70's Pt was given a breathing treatment and was placed on a Ventimask at 6L The nursing staff reports that they have tried to wean her back down to the NC but she still desaturates into the 70's Pt denies any chest pain, cough or palpations. Objective Vitals Vital Signs Date Time Temp Pulse Resp B/P (MAP) Pulse Ox O2 Delivery O2 Flow Rate FiO2 04/22/17 09:44 87 36 76 04/22/17 08:43 96.6 79 30 139/68 (91) 89 04/22/17 08:35 96.5 90 36 151/71 (97) 74 04/22/17 08:20 96 Nasal Cannula 2.00 04/22/17 08:00 97.2 77 16 127/65 (85) 97 04/22/17 04:00 96.5 76 17 130/66 (87) 96 04/22/17 00:36 98.7 104 16 148/80 (102) 97 04/21/17 22:12 18 04/21/17 20:19 89 Nasal Cannula 3.00 04/21/17 19:00 96.0 102 17 165/96 (119) 92 04/21/17 16:00 96.3 108 19 153/84 (107) 93 Result Diagram: 04/20/17 0544 04/21/17 0735 Other Results Laboratory Tests Test 04/21/17 07:35 04/22/17 11:33 Blood Urea Nitrogen 9 MG/DL Creatinine 0.29 MG/DL Random Glucose 84 MG/DL Calcium Level 7.9 MG/DL Sodium Level 141 MEQ/L Potassium Level 3.8 MEQ/L Chloride Level 105 MEQ/L Carbon Dioxide Level 30.8 MEQ/L Anion Gap 5 MEQ/L Estimat Glomerular Filtration Rate 221 ML/MIN D-Dimer Quantitative (PE/DVT) 4.54 MG/L FEU Imaging Last Impressions Chest X-Ray 04/22/17 0000 Signed Impressions: Service Date/Time: Saturday, April 22, 2017 11:17 - CONCLUSION: 1. New small bibasilar opacities likely representing a very small pleural effusions with associated atelectasis and/or consolidation. 2. Stable appearance to the upper lung zones bilaterally. Ismael Olsen MD Hip X-Ray 04/18/17 0000 Signed Impressions: Service Date/Time: March 12:14 - CONCLUSION: Status post open rigid internal fixation.. Ashish Saunders MD Hip and Pelvis X-Ray 04/17/17 0000 Signed Impressions: Service Date/Time: Monday, April 17, 2017 04:18 - CONCLUSION: Subcapital femoral neck fracture. Ismael Romano MD Last 72 hours Impressions Chest X-Ray 04/17/17 0439 Signed Impressions: Service Date/Time: Monday, April 17, 2017 04:43 - CONCLUSION: 1. Questionable nodular density seen in the upper lungs bilaterally. His could be further evaluated with a CT examination of the chest. 2. Mildly prominent interstitial markings especially in the upper lungs. Ismael Romano MD Hip and Pelvis X-Ray 04/17/17 0000 Signed Impressions: Service Date/Time: Monday, April 17, 2017 04:18 - CONCLUSION: Subcapital femoral neck fracture. Ismael Romano MD Objective Remarks General: NAD, AAOx3 Chest: CTA Cardiac: Regular Abd: +BS, soft ND/NT Ext: Left hip bandages are c/d/i A/P Problem List: (1) Closed left hip fracture ICD Codes: S72.002A - Fracture of unspecified part of neck of left femur, initial encounter for closed fracture Status: Acute Plan: Hip fracture, left - Pt s/p left hip ORIF on 04/18/[address] Rosales - Post op pain control with Tylenol PO and IV PRN. Pt does not want any narcotics due to SE of nausea - IS - PT - Anticipate d/c to SNF in 1-2 days - Constipation precautions, meds added - DVT prophylaxis with Lovenox - Pt had an episode of increased SOB and hypoxia this morning, she was given a breathing treatment but is still requiring Ventimask @ 6L. - CXR (04/22) --> New small bibasilar opacities likely representing a very small pleural effusions with associated atelectasis and/or consolidation. Stable appearance to the upper lung zones bilaterally. - D-Dimer was elevated at 4.54, some of this may be secondary to her recent trauma/surgery but we have to rule out a PE - Check Pulmonary CTA - Pt is planned for discharge to [place], when pt is more stable. - She had to have her Gill cath reinserted after removal due to retention. This will be continued at rehab and voiding trial can be attempted at rehab HTN - BP actually low post-operatively - BP started to elevate back up on 04/20 - Lisinopril 20mg po daily resumed on 04/20 - BP still elevated during the night on 04/21, Verapamil 240mg HS resumed on 04/21 - BP readings and HR are stable. - Monitor Anxiety - Cont. Anxiolytics PRN Diastolic CHF, stable - EF was 60% on echo done February 2014. No overt failure on exam. GERD - Protonix 40mg po BID, give 30 mins prior to morning and evening meals Hypothyroidism - Cont. Home meds COPD, stable. - Pt typically uses supplemental O2 as needed at home but pts daughter reports that the pt will typically not uses the O2 unless she is forced to and typically walks around with an O2 sat in the mid to high 80's - Pt 6L Ventimask, see above. - No wheezing Possible nodular densities in upper lungs seen on cxr. - Review of outpt records noted: outpt cxr 02/03, right lung nodularity. Outpt ct chest 2014, multiple bilateral small nodules, largest 6mm on right lower lobe...that increased from prior. - Pt and family decline CT Thorax on 04/20 - Repeat CXR (04/21) --> Reticulonodular interstitial densities greater in the upper lobes could be acute or chronic (2) Hypothyroidism ICD Codes: E03.9 - Hypothyroidism, unspecified Status: Chronic Plan: - See above (3) GERD (gastroesophageal reflux disease) ICD Codes: K21.9 - Gastro-esophageal reflux disease without esophagitis Status: Chronic Plan: - See above (4) Diastolic congestive heart failure ICD Codes: I50.30 - Unspecified diastolic (congestive) heart failure Status: Chronic Plan: - See above (5) COPD (chronic obstructive pulmonary disease) ICD Codes: J44.9 - Chronic obstructive pulmonary disease, unspecified Status: Chronic Plan: - See above (6) Hypertension ICD Codes: I10 - Essential (primary) hypertension Status: Chronic Plan: - See above Assessment and Plan Patient examined. Assessment and plan formulated with Sofia Corley PA-C. I agree with the above. Pt with increased SOB and oxygen requirements. Pt requiring venti mask. Pt's oxygen dropped when I tried to wean her to [place]. D-dimer positive (although recent surgery could also elevate d-dimer) CXR (04/22) --> NO acute pathology obtain CTA thorax, r/o PE - per pt, 40 yrs ago she had itching with IV dye. Pt states that 4 years ago she received Benadryl prior to IV dye and did alright. Problem Qualifiers (1) Closed left hip fracture: Qualified Codes: S72.002A - Fracture of unspecified part of neck of left femur , initial encounter for closed fracture (2) Hypertension: Qualified Codes: I10 - Essential (primary) hypertension Sofia Corley Apr 22, 2017 12:37 Tobi Salcedo DO Apr 22, 2017 12:51
[2017-04-22] MEDS ORDERED: diphenhydrAMINE HCL 25 MG CAP PO ONE (13:00)
[2017-04-22] MEDS: ENOXAPARIN SODIUM 30 MG/0.3 ML SYRINGE SQ SCH (14:52)
[2017-04-22] MEDS ORDERED: IOHEXOL 350 MG/ML 10 ML VIAL (for RAD DIAG) IVCONTRAST ONE (16:50)
--- NOTE | 2017-04-22 17:10 | RADRPT ---
EXAM DATE/TIME: 04/22/2017 16:42 [facility] COMPARISON: CHEST SINGLE AP, April 22, 2017, 11:17. CHEST SINGLE AP, April 21, 2017, 10:24. INDICATIONS : Shortness of breath. IV CONTRAST: 75 cc Omnipaque 350 (iohexol) IV RADIATION DOSE: 9.77 CTDIvol (mGy) MEDICAL HISTORY : Chronic obstructive pulmonary disease. Cardiovascular disease Hypertension.skin cancer SURGICAL HISTORY : Hysterectomy. ENCOUNTER: Initial ACUITY: 1 day PAIN SCALE: 0/10 LOCATION: Bilateral chest TECHNIQUE: Volumetric scanning of the chest was performed using a pulmonary embolism protocol MIP images were re constructed. Using automated exposure control and adjustment of the mA and/or kV according to patien t size, radiation dose was kept as low as reasonably achievable to obtain optimal diagnostic quality images. DICOM format image data is available electronically for review and comparison. Follow-up recommendations for detected pulmonary nodules are based at a minimum on nodule size and pa tient risk factors according to Fleischner Society Guidelines. FINDINGS: PULMONARY ARTERIES: No filling defects are seen in the pulmonary arteries through the segmental level. LUNGS: There is moderate severity centrilobular and paraseptal emphysema in the upper lobes. Questionable gr oundglass opacity is present within the lung parenchyma bilaterally particularly in the upper lobes. There is mild smooth septal thickening in the lower lobes. Compressive atelectasis is present in both lower lobes. 7 noncalcified pulmonary nodules are identified with a 5 mm and 3 mm nodule in the righ t upper lobe, 4 pulmonary nodules in the right middle lobe measuring up to 6 mm, and a mildly spicula sanna 9 mm nodule in the left lower lobe. PLEURAE: There are small bilateral pleural effusions. No pleural thickening is seen. MEDIASTINUM: The heart and great vessels demonstrate no acute finding. There is coronary artery calcification and severe atherosclerotic disease of the aorta. No significant lymphadenopathy is identified. MUSCULOSKELETAL: There are degenerative changes of the thoracic spine. MISCELLANEOUS: A small hiatal hernia is present. CONCLUSION: 1. No PE is identified. 2. Septal thickening with mild groundglass opacity bilaterally could indicate pulmonary edema in the appropriate clinical setting. There are also small bilateral pleural effusions. 3. Moderate severity emphysema with a 7 pulmonary nodules identified measuring up to 9 mm. This shoul d be correlated with the patient's prior imaging studies to assess for change. If none are available, followup is recommended with noncontrast chest CT in 3 months. Ismael Olsen MD on April 22, 2017 at 16:58 Board Certified Radiologist. This report was verified electronically.
[2017-04-22] MEDS: VERAPAMIL HCL 240 MG SUSTAINED RELEASE TAB PO SCH (21:04)
[2017-04-22] MEDS: ALPRAZolam 0.25 MG TAB PO PRN (21:04)
[2017-04-23 00:10] VITALS: BP 147/69; PULSE 87; RESP 19; TEMP 96.4; O2SAT 94
[2017-04-23 01:47] VITALS: O2SAT 98
[2017-04-23 04:10] VITALS: BP 115/58; PULSE 81; RESP 24; TEMP 96.9; O2SAT 94
[2017-04-23 04:42] LABS: AUTOMATED NEUTROPHIL # 4.9 TH/MM3 (1.8-7.7); BASOPHIL # 0.1 TH/MM3 (0-0.2); BASOPHIL % 1.3 % (0.0-2.0); EOSINOPHIL # 0.6 TH/MM3 (0-0.4); EOSINOPHIL % 8.1 % (0.0-4.0); HEMATOCRIT 30.1 % (35.0-46.0); HEMO FLAGS DIFF FINAL; LYMPH % 16.4 % (9.0-44.0); LYMPHOCYTE # 1.2 TH/MM3 (1.0-4.8); MEAN CELL VOLUME 83.8 FL (80.0-100.0); MEAN CORPUSCULAR HEMOGLOBIN 26.8 PG (27.0-34.0); NEUT % 66.2 % (16.0-70.0); PLATELET COUNT 368 TH/MM3 (150-450); RED BLOOD COUNT 3.59 MIL/MM3 (4.00-5.30); RED CELL DISTRIBUTION WIDTH 15.2 % (11.6-17.2); WHITE BLOOD COUNT 7.4 TH/MM3 (4.0-11.0)
[2017-04-23 05:30] LABS: BICARBONATE 34.3 MEQ/L (21.0-32.0); MAGNESIUM 2.1 MG/DL (1.5-2.5); POTASSIUM 3.6 MEQ/L (3.5-5.1)
[2017-04-23 07:29] VITALS: BP 120/53; PULSE 71; RESP 20; TEMP 96.9; O2SAT 98
[2017-04-23] MEDS: DOCUSATE SODIUM 100 MG CAP PO SCH (08:32)
[2017-04-23] MEDS: LISINOPRIL 20 MG TAB PO SCH (08:32)
[2017-04-23] MEDS: PANTOPRAZOLE SOD 40 MG DELAYED RELEASE TAB PO SCH ×2 (08:32→17:08)
[2017-04-23] MEDS: ACETAMINOPHEN 325 MG TAB PO PRN ×2 (08:32→12:54)
[2017-04-23] MEDS: ALPRAZolam 0.25 MG TAB PO PRN ×2 (08:32→17:06)
[2017-04-23] MEDS: UMECLIDINIUM 62.5 MCG/VILANTEROL 25 MCG INHALER INH SCH (08:33)
[2017-04-23] MEDS: SODIUM CHLORIDE 0.9% FLUSH 10 ML FLUSH IV FLUSH SCH (09:00)
[2017-04-23 11:44] VITALS: BP 121/58; PULSE 75; RESP 20; TEMP 96.4; O2SAT 94
--- NOTE | 2017-04-23 13:20 | HHI.PR ---
Subjective Remarks No new complaints. Objective Vitals Vital Signs Date Time Temp Pulse Resp B/P (MAP) Pulse Ox O2 Delivery O2 Flow Rate FiO2 04/23/17 11:44 96.4 75 20 121/58 (79) 94 04/23/17 11:21 Nasal Cannula 4.00 04/23/17 07:29 96.9 71 20 120/53 (75) 98 04/23/17 04:10 96.9 81 24 115/58 (77) 94 04/23/17 01:47 98 04/23/17 00:10 96.4 87 19 147/69 (95) 94 04/22/17 22:18 Nasal Cannula 4.00 04/22/17 21:05 Simple Mask 6.00 04/22/17 20:15 97.3 85 18 149/73 (98) 98 04/22/17 15:40 96.1 81 26 144/67 (92) 98 Result Diagram: 04/23/17 0423 04/23/17 0423 Other Results Laboratory Tests Test 04/22/17 11:33 04/23/17 04:23 D-Dimer Quantitative (PE/DVT) 4.54 MG/L FEU White Blood Count 7.4 TH/MM3 Red Blood Count 3.59 MIL/MM3 Hemoglobin 9.6 GM/DL Hematocrit 30.1 % Mean Corpuscular Volume 83.8 FL Mean Corpuscular Hemoglobin 26.8 PG Mean Corpuscular Hemoglobin Concent 32.0 % Red Cell Distribution Width 15.2 % Platelet Count 368 TH/MM3 Mean Platelet Volume 6.8 FL Neutrophils (%) (Auto) 66.2 % Lymphocytes (%) (Auto) 16.4 % Monocytes (%) (Auto) 8.0 % Eosinophils (%) (Auto) 8.1 % Basophils (%) (Auto) 1.3 % Neutrophils # (Auto) 4.9 TH/MM3 Lymphocytes # (Auto) 1.2 TH/MM3 Monocytes # (Auto) 0.6 TH/MM3 Eosinophils # (Auto) 0.6 TH/MM3 Basophils # (Auto) 0.1 TH/MM3 CBC Comment DIFF FINAL Differential Comment Blood Urea Nitrogen 6 MG/DL Creatinine 0.29 MG/DL Random Glucose 95 MG/DL Calcium Level 8.3 MG/DL Magnesium Level 2.1 MG/DL Sodium Level 140 MEQ/L Potassium Level 3.6 MEQ/L Chloride Level 101 MEQ/L Carbon Dioxide Level 34.3 MEQ/L Anion Gap 5 MEQ/L Estimat Glomerular Filtration Rate 221 ML/MIN Imaging Last Impressions Chest X-Ray 04/22/17 Signed Impressions: Service Date/Time: Saturday, April 22, 2017 11:17 - CONCLUSION: 1. New small bibasilar opacities likely representing a very small pleural effusions with associated atelectasis and/or consolidation. 2. Stable appearance to the upper lung zones bilaterally. Ismael Olsen MD CT Angiography 04/22/17 Signed Impressions: Service Date/Time: Saturday, April 22, 2017 16:42 - CONCLUSION: 1. No PE is identified. 2. Septal thickening with mild groundglass opacity bilaterally could indicate pulmonary edema in the appropriate clinical setting. There are also small bilateral pleural effusions. 3. Moderate severity emphysema with a 7 pulmonary nodules identified measuring up to 9 mm. This should be correlated with the patient's prior imaging studies to assess for change. If none are available, followup is recommended with noncontrast chest CT in 3 months. Ismael Olsen MD Hip X-Ray 04/18/17 Signed Impressions: Service Date/Time: March 12:14 - CONCLUSION: Status post open rigid internal fixation.. Ashish Saunders MD Hip and Pelvis X-Ray 04/17/17 Signed Impressions: Service Date/Time: Monday, April 17, 2017 04:18 - CONCLUSION: Subcapital femoral neck fracture. Ismael Romano MD Last Impressions Chest X-Ray 04/22/17 Signed Impressions: Service Date/Time: Saturday, April 22, 2017 11:17 - CONCLUSION: 1. New small bibasilar opacities likely representing a very small pleural effusions with associated atelectasis and/or consolidation. 2. Stable appearance to the upper lung zones bilaterally. Ismael Olsen MD Hip X-Ray 04/18/17 Signed Impressions: Service Date/Time: March 12:14 - CONCLUSION: Status post open rigid internal fixation.. Ashish Saunders MD Hip and Pelvis X-Ray 04/17/17 Signed Impressions: Service Date/Time: Monday, April 17, 2017 04:18 - CONCLUSION: Subcapital femoral neck fracture. Ismael Romano MD Last 72 hours Impressions Chest X-Ray 04/17/17 0439 Signed Impressions: Service Date/Time: Monday, April 17, 2017 04:43 - CONCLUSION: 1. Questionable nodular density seen in the upper lungs bilaterally. His could be further evaluated with a CT examination of the chest. 2. Mildly prominent interstitial markings especially in the upper lungs. Ismael Romano MD Hip and Pelvis X-Ray 04/17/17 0000 Signed Impressions: Service Date/Time: Monday, April 17, 2017 04:18 - CONCLUSION: Subcapital femoral neck fracture. Ismael Romano MD Objective Remarks General: NAD, AAOx3 Chest: CTA Cardiac: Regular Abd: +BS, soft ND/NT Ext: Left hip bandages are c/d/i A/P Problem List: (1) Closed left hip fracture ICD Codes: S72.002A - Fracture of unspecified part of neck of left femur, initial encounter for closed fracture Status: Acute Plan: Hip fracture, left - Pt s/p left hip ORIF on 04/18/[address] Rosales - Post op pain control with Tylenol PO and IV PRN. Pt does not want any narcotics due to SE of nausea - IS - PT - Anticipate d/c to SNF in 1-2 days - Constipation precautions, meds added - DVT prophylaxis with Lovenox - Pt had an episode of increased SOB and hypoxia on 04/22, she was given a breathing treatment but was still requiring Ventimask @ 6L. - CXR (04/22) --> New small bibasilar opacities likely representing a very small pleural effusions with associated atelectasis and/or consolidation. Stable appearance to the upper lung zones bilaterally. - D-Dimer was elevated at 4.54, some of this may be secondary to her recent trauma/surgery but we have to rule out a PE - Pulmonary CTA (04/22/17) --> No PE is identified. Septal thickening with mild groundglass opacity bilaterally could indicate pulmonary edema in the appropriate clinical setting. There are also small bilateral pleural effusions. Moderate severity emphysema with a 7 pulmonary nodules identified measuring up to 9 mm. - Her O2 requirements improved on 04/23 and is on 4L via NC - Pt is planned for discharge to [place], when pt is more stable. - She had to have her Gill cath reinserted after removal due to retention. This will be continued at rehab and voiding trial can be attempted at rehab HTN - BP actually low post-operatively - BP started to elevate back up on 04/20 - Lisinopril 20mg po daily resumed on 04/20 - BP still elevated during the night on 04/21, Verapamil 240mg HS resumed on 04/21 - BP readings and HR are stable. - Monitor Anxiety - Cont. Anxiolytics PRN Diastolic CHF, stable - EF was 60% on echo done February 2014. No overt failure on exam. GERD - Protonix 40mg po BID, give 30 mins prior to morning and evening meals Hypothyroidism - Cont. Home meds COPD, stable. - Pt typically uses supplemental O2 as needed at home but pts daughter reports that the pt will typically not uses the O2 unless she is forced to and typically walks around with an O2 sat in the mid to high 80's - Pt currently on 4L NC, see above. - No wheezing Possible nodular densities in upper lungs seen on cxr. - Review of outpt records noted: outpt cxr 02/03, right lung nodularity. Outpt CT chest 2014, multiple bilateral small nodules, largest 6mm on right lower lobe...that increased from prior. - Pt and family decline CT Thorax on 04/20 - Repeat CXR (04/21) --> Reticulonodular interstitial densities greater in the upper lobes could be acute or chronic (2) Hypothyroidism ICD Codes: E03.9 - Hypothyroidism, unspecified Status: Chronic Plan: - See above (3) GERD (gastroesophageal reflux disease) ICD Codes: K21.9 - Gastro-esophageal reflux disease without esophagitis Status: Chronic Plan: - See above (4) Diastolic congestive heart failure ICD Codes: I50.30 - Unspecified diastolic (congestive) heart failure Status: Chronic Plan: - See above (5) COPD (chronic obstructive pulmonary disease) ICD Codes: J44.9 - Chronic obstructive pulmonary disease, unspecified Status: Chronic Plan: - See above (6) Hypertension ICD Codes: I10 - Essential (primary) hypertension Status: Chronic Plan: - See above Assessment and Plan Patient examined. Assessment and plan formulated with Sofia [place] PA-C. I agree with the above. Pt with increased SOB and oxygen requirements. Pt requiring venti mask. Pt's oxygen dropped when I tried to wean her to [place]. D-dimer positive (although recent surgery could also elevate d-dimer) CXR (04/22) --> NO acute pathology obtain CTA thorax, r/o PE - per pt, 40 yrs ago she had itching with IV dye. Pt states that 4 years ago she received Benadryl prior to IV dye and did alright. Problem Qualifiers (1) Closed left hip fracture: Qualified Codes: S72.002A - Fracture of unspecified part of neck of left femur , initial encounter for closed fracture (2) Hypertension: Qualified Codes: I10 - Essential (primary) hypertension Sofia Corley Apr 23, 2017 13:20 Tobi Salcedo DO Apr 24, 2017 23:26
[2017-04-23] MEDS: ENOXAPARIN SODIUM 30 MG/0.3 ML SYRINGE SQ SCH (15:20)
[2017-04-23 15:44] VITALS: BP 146/70; PULSE 75; RESP 20; TEMP 95.5; O2SAT 95
[2017-04-23] MEDS ORDERED: ENOX30P SQ (16:50)
[2017-04-23] MEDS ORDERED: Albuterol-Ipratropium Neb NEB (16:50)
[2017-04-23] MEDS ORDERED: UMEC1AER INH (16:50)
[2017-04-23] MEDS ORDERED: DOCU1CAP39 PO (16:50)
--- NOTE | 2017-04-23 16:57 | HHI.DS ---
Discharge Summary Admission Date Apr 17, 2017 at 05:28 Discharge Date: Apr 23, 2017 Admitting Diagnosis left femoral neck fracture (1) Closed left hip fracture Diagnosis: Principal ICD Codes: S72.002A - Fracture of unspecified part of neck of left femur, initial encounter for closed fracture Status: Acute (2) Hypothyroidism Diagnosis: Secondary ICD Codes: E03.9 - Hypothyroidism, unspecified Status: Chronic (3) GERD (gastroesophageal reflux disease) Diagnosis: Secondary ICD Codes: K21.9 - Gastro-esophageal reflux disease without esophagitis Status: Chronic (4) Diastolic congestive heart failure Diagnosis: Secondary ICD Codes: I50.30 - Unspecified diastolic (congestive) heart failure Status: Chronic (5) COPD (chronic obstructive pulmonary disease) Diagnosis: Secondary ICD Codes: J44.9 - Chronic obstructive pulmonary disease, unspecified Status: Chronic (6) Hypertension Diagnosis: Secondary ICD Codes: I10 - Essential (primary) hypertension Status: Chronic Consultants Dr. Antoni Rosales - Orthopedic Surgery Brief History The patient is a 82-year-old female with COPD and diastolic heart failure who presents emergency department for left hip and pelvic pain after falling. Patient fell at her home around 11 PM last night when walking on her carpeted floor which is been cleaned that day. She reports that she generally walks barefoot but was wearing some shoes as a carpet been cleaned. The rubber sole of the shoe got caught on some carpeted she felt her left hip. The patient was able to ambulate into bed with noted pain, however, was unable to ambulate after she got into bed. The patient states she had difficulty getting to the bathroom and had to call EMS. She was unable to bear weight to the bathroom, but was able to get there with EMS help. She does have a history of previous right hip replacement, denies any previous injuries to the left hip. The pain is worse with movement and weightbearing activity. She denies any head injury, neck injury, chest pain, shortness breath, nausea, vomiting, loss of consciousness, palpitations or abdominal pain. X-ray performed demonstrates left femoral neck fracture. Patient's pain is controlled presently on Tylenol and she is currently declining any opiate type pain medication due to her previous reaction. She is requesting her previous orthopedic surgeon Dr. Rosales. I have communicated with him and he will see patient today. CBC/BMP: 04/23/17 0423 04/23/17 0423 Significant Findings Laboratory Tests Test 04/21/17 07:35 04/22/17 11:33 04/23/17 04:23 Creatinine 0.29 MG/DL (0.50-1.00) 0.29 MG/DL (0.50-1.00) Calcium Level 7.9 MG/DL (8.5-10.1) 8.3 MG/DL (8.5-10.1) D-Dimer Quantitative (PE/DVT) 4.54 MG/L FEU (0.00-0.50) Red Blood Count 3.59 MIL/MM3 (4.00-5.30) Hemoglobin 9.6 GM/DL (11.6-15.3) Hematocrit 30.1 % (35.0-46.0) Mean Corpuscular Hemoglobin 26.8 PG (27.0-34.0) Mean Platelet Volume 6.8 FL (7.0-11.0) Eosinophils (%) (Auto) 8.1 % (0.0-4.0) Eosinophils # (Auto) 0.6 TH/MM3 (0-0.4) Blood Urea Nitrogen 6 MG/DL (7-18) Carbon Dioxide Level 34.3 MEQ/L (21.0-32.0) Imaging Last Impressions Chest X-Ray 04/22/17 0000 Signed Impressions: Service Date/Time: Saturday, April 22, 2017 11:17 - CONCLUSION: 1. New small bibasilar opacities likely representing a very small pleural effusions with associated atelectasis and/or consolidation. 2. Stable appearance to the upper lung zones bilaterally. Ismael Olsen MD CT Angiography 04/22/17 0000 Signed Impressions: Service Date/Time: Saturday, April 22, 2017 16:42 - CONCLUSION: 1. No PE is identified. 2. Septal thickening with mild groundglass opacity bilaterally could indicate pulmonary edema in the appropriate clinical setting. There are also small bilateral pleural effusions. 3. Moderate severity emphysema with a 7 pulmonary nodules identified measuring up to 9 mm. This should be correlated with the patient's prior imaging studies to assess for change. If none are available, followup is recommended with noncontrast chest CT in 3 months. Ismael Olsen MD Hip X-Ray 04/18/17 0000 Signed Impressions: Service Date/Time: March 12:14 - CONCLUSION: Status post open rigid internal fixation.. Ashish Saunders MD Hip and Pelvis X-Ray 04/17/17 0000 Signed Impressions: Service Date/Time: Monday, April 17, 2017 04:18 - CONCLUSION: Subcapital femoral neck fracture. Ismael Romano MD PE at Discharge General: NAD, AAOx3 Chest: CTA Cardiac: Regular Abd: +BS, soft ND/NT Ext: Left hip bandages are c/d/i Hospital Course Hip fracture, left Pt s/p left hip ORIF on 04/18/[address] Rosales. Post op pain control with Tylenol PO and IV PRN. Pt does not want any narcotics due to SE of nausea. Pt was given DVT prophylaxis with Lovenox. Pt had an episode of increased SOB and hypoxia on 04/22, she was given a breathing treatment but was still requiring Ventimask @ 6L. CXR (04/22) --> New small bibasilar opacities likely representing a very small pleural effusions with associated atelectasis and/or consolidation. Stable appearance to the upper lung zones bilaterally. D-Dimer was elevated at 4.54, some of this may be secondary to her recent trauma/ surgery but we have to rule out a PE. Pulmonary CTA (04/22/17) --> No PE is identified. Septal thickening with mild ground glass opacity bilaterally could indicate pulmonary edema in the appropriate clinical setting. There are also small bilateral pleural effusions. Moderate severity emphysema with a 7 pulmonary nodules identified measuring up to 9 mm. Her O2 requirements improved on 04/23 and is on 4L via NC on the day of discharge. Pt is planned for discharge to [facility]. She had to have her Gill cath reinserted after removal due to retention. This will be continued at rehab and voiding trial can be attempted at rehab. HTN BP was low post-operatively. BP started to elevate back up on 04/20. Lisinopril 20mg po daily resumed on 04/20. BP still elevated during the night on 04/21, Verapamil 240mg HS resumed on 04/21. BP readings and HR are stable. Anxiety Pt was given anxiolytics PRN Diastolic CHF, stable Pt has an EF was 60% on echo done February 2014. No overt failure on exam. Her lasix and potassium to be resumed at discharge. GERD Cont. PPI BID, to be given 30 mins prior to morning and evening meals Hypothyroidism Cont. Home meds COPD, stable. Continue home meds. Pt typically uses supplemental O2 as needed at home but pts daughter reports that the pt will typically not uses the O2 unless she is forced to and typically walks around with an O2 sat in the mid to high 80's. Pt currently on 4L NC, see above. Her O2 requirements can be titrated down at rehab. Continue incentive spirometer Nodular densities in upper lungs seen on cxr. Pt has hx of lung nodules. Review of outpt records noted: outpt cxr 02/03, right lung nodularity. Outpt CT chest 2014, multiple bilateral small nodules, largest 6mm on right lower lobe, that increased from prior. Pt and family decline CT Thorax on 04/20. 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 This is being monitored by her PCP, Dr. Barrett. Pt will need to followup with Dr. Rosales in 2 weeks She will need to followup with her PCP, Dr. Barrett 1 week after discharge from rehab. Pt Condition on Discharge: Stable Discharge Disposition: Rehab Inpatient Discharge Instructions DIET: Follow Instructions for: Heart Healthy Diet Activities you can perform: Partial Weight Bearing, Shower Only-No Bath Activities to Avoid: Bathing, Driving Follow up Referrals: Orthopedics - 2 Weeks with Elsie Rosales MD New Medications: Docusate Sodium (Dok) 100 Mg Cap 100 MG PO BID for narcotic use for 30 Days, #60 CAP Enoxaparin Inj (Lovenox Inj) 30 Mg/0.3 Ml Syr 30 MG SQ Q24H for dvt prophylaxis for 14 Days, INJECTION Umeclidinium-Vilanterol Inh (Anoro Ellipta Inh) 62.5-25 Mcg/Act Aero 1 PUFF INH DAILY for copd for 30 Days, INHALER [Albuterol-Ipratropium Neb] () 1 AMPULE NEBU 1 AMPULE NEB Q4HR NEB PRN for shortness of breath or wheeze for 30 Days Continued Medications: Alprazolam (Xanax) 1 Mg Tab 1 MG PO Q8H PRN for ANXIETY, TAB 0 Refills Furosemide (Furosemide) 20 Mg Tab 20 MG PO DAILY, #30 TAB 0 Refills Lansoprazole (Lansoprazole) 30 Mg Capdr 30 MG PO DAILY, CAP 0 Refills Lisinopril (Lisinopril) 20 Mg Tab 20 MG PO DAILY, #30 TAB 0 Refills Potassium Chloride ER (K-Tab) 10 Meq Tab 10 MEQ PO DAILY for Electrolyte Replacement, #30 TAB 0 Refills Verapamil ER 24 HR (Verapamil ER 24 HR) 240 Mg Tab 240 MG PO HS, #30 TAB 0 Refills Discontinued Medications: Aspirin (Aspirin) 81 Mg Chew 81 MG CHEW DAILY, TAB 0 Refills Ranitidine (Ranitidine) 150 Mg Tab 150 MG PO DAILY for Heartburn Management, #30 TAB 0 Refills Additional Information Patient examined. Assessment and plan formulated with Sofia Corley PA-C. I agree with the above. Sofia Corley Apr 23, 2017 16:57 Tobi Salcedo DO Apr 24, 2017 23:27
== END 2017-04-23 17:57 | DRG 481 ==
LOC: NEPE 03:48 → NEDA 05:28 → N06A 06:06 → NEDA 07:12 → N06A 08:16
PROVIDERS: ADMIT Hospitalist; ATTEND Hospitalist
PROC: 0QS704Z Reposition Left Upper Femur with Internal Fixation Device, Open Approach (ICD-10-PCS; principal; 2017-04-18 10:54)
PROC: 0T9B70Z Drainage of Bladder with Drainage Device, Via Natural or Artificial Opening (ICD-10-PCS; 2017-04-20)
DX: S72.012A Unspecified intracapsular fracture of left femur, initial encounter for closed fracture (principal); I50.32 Chronic diastolic (congestive) heart failure; I11.0 Hypertensive heart disease with heart failure; J98.11 Atelectasis; E78.5 Hyperlipidemia, unspecified; R33.9 Retention of urine, unspecified; R09.02 Hypoxemia; F41.9 Anxiety disorder, unspecified; E03.9 Hypothyroidism, unspecified; E55.9 Vitamin D deficiency, unspecified; K21.9 Gastro-esophageal reflux disease without esophagitis; R91.8 Other nonspecific abnormal finding of lung field; M81.0 Age-related osteoporosis without current pathological fracture; W01.0XXA Fall on same level from slipping, tripping and stumbling without subsequent striking against object, initial encounter; Y92.009 Unspecified place in unspecified non-institutional (private) residence as the place of occurrence of the external cause; Z86.718 Personal history of other venous thrombosis and embolism; Z85.828 Personal history of other malignant neoplasm of skin; Z88.5 Allergy status to narcotic agent; Z88.0 Allergy status to penicillin; Z88.8 Allergy status to other drugs, medicaments and biological substances; Z87.891 Personal history of nicotine dependence; Z91.041 Radiographic dye allergy status
CPT/HCPCS: 36415; 51702; 71010; 71275; 73502; 76000; 80048; 80053; 81001; 83735; 85014; 85018; 85025; 85379; 85610; 85730; 86850; 86900; 86901; 93005; 94150; 94664; C1713; C1769; C9113; J0131; J1580; J1650; J2370; J3010; J7030; Q9967